=== PATIENT | male | born 1995 | race Caucasian/White ===

== ENCOUNTER 2021-05-10 11:21 | Inpatient (IN) | payer OTHER, SELFPAY ==
[2021-05-10 11:33] VITALS: BP 137/68; PULSE 87; RESP 18; TEMP 36.7; O2SAT 93; BMI 20.2
[2021-05-10 12:50] VITALS: BP 136/85; PULSE 88; RESP 18; O2SAT 100
--- NOTE | 2021-05-10 12:56 | PC.NURSE ---
patient reports he comes here for detox reports using recentyl crystal meth, patient does not appear restless or overstimulated. patient reports recently attending [facility] and leaving early. eddie patricia lives with mother, contracts for safety. pt reports past dx of BPD, SAD, low bmi. reports hearing voices not command, and has difficulty concentrating which is worse with drug use. vaccinated for covid, had covid 10/08.
--- NOTE | 2021-05-10 13:00 | ED.MEDCLEAR ---
HPI - Medical Clearance General Chief complaint: Medical Clearance Stated complaint: BH -med clearance Time Seen by Provider: 05/10/21 12:33 Source: patient Mode of arrival: ambulatory Limitations: no limitations History of Present Illness HPI Narrative: 25 yo male here seeking detox for meth. Injects daily. No additional substance use. Was at [facility] in [place] until 4 days ago when he decided to leave. No SI/Hi. Feels dehydrated d/t poor po intake. It appears family has additional concerns and patient was referred to ED for care team evaluation. Pt Denies SI/HI/hallucinations/depression and anxiety. He does tell me he has difficulty concentrating. Related Information Home Medications Medication Instructions Recorded Confirmed clonidine HCl 0.1 mg PO Q6H PRN 05/10/21 05/10/21 hydroxyzine pamoate 50 mg PO Q6H PRN 05/10/21 05/10/21 quetiapine 200 mg PO DAILY 05/10/21 05/10/21 venlafaxine 37.5 mg PO BID 05/10/21 05/10/21 Allergies Allergy/AdvReac Type Severity Reaction Status Date / Time No Known Allergies Allergy Verified 05/10/21 12:33 Review of Systems Review of Systems: Yes all other systems are reviewed and are negative Constitutional: Constitutional: Reports no additional constitutional complaints, Denies body ache(s), Denies chills, Denies fever(s), Denies headache(s) and Denies weakness Eyes: Eyes: Reports no additional eye complaints and Denies change in vision ENT: Reports system reviewed and no additional complaints, except as documented, Denies dizziness, Denies headache(s), Denies nasal congestion, Denies nasal discharge and Denies neck pain Cardiovascular: Cardiovascular: Reports no additional cardiovascular complaints, Denies chest pain, Denies leg edema and Denies dyspnea Respiratory: Respiratory: Reports no additional respiratory complaints, Denies cough and Denies dyspnea Gastrointestinal: Gastrointestinal: Reports no additional gastrointestinal complaints, Denies abdominal pain, Denies diarrhea, Denies nausea and Denies vomiting Genitourinary: Genitourinary: Denies urinary incontinence Musculoskeletal: Musculoskeletal: Reports no additional musculoskeletal complaints, Denies back pain, Denies arthralgias, Denies joint swelling, Denies neck pain, Denies numbness and Denies tingling Integumentary/Breasts: Skin/Breast: Reports system reviewed and no additional complaints, except as docu and Denies rash Neurologic: Reports system reviewed and no additional complaints, except as documented, Denies Abnormal speech present, Denies dizziness, Denies headache(s), Denies numbness, Denies tingling and Denies weakness Psychiatric: Psychiatric: Denies anxiety, Denies depression, Reports difficulty concentrating, Denies visual hallucinations, Denies hallucinations, Denies homicidal ideation and Denies suicidal ideation PMF Past Medical History Medical History Polycystic kidney disease Social History Social History Alcohol intake: former Patient Tobacco Use Status: Current everyday Tobacco user Smoked in Last 30 Days: Yes Use of substances other than those prescribed or required for medical reasons: Yes Substance Use Type: Amphetamines Substance Use Frequency: Recent Binge Last Used Substance: Hours (ago) Any prior treatment program specific to substance use: Yes Advance Directives: No Advance Directives Information Provided: No Healthcare Proxy: No Guardian: No Physical Exam Vital Signs: Vital Signs: Last Vital Signs Temp 98.1 F 05/10/21 11:33 Pulse 88 05/10/21 15:47 Resp 18 05/10/21 12:50 BP 136/85 05/10/21 15:47 Pulse Ox 100 05/10/21 12:50 Body Mass Index 20.2 Const: General: cooperative, healthy appearing, comfortable and no acute distress Orientation/consciousness: patient oriented x3 Limitations: no limitations HENMT: Head: Yes normal to inspection Ears: hearing grossly normal bilaterally General nose exam: Normal external nose present Face and sinus: Yes normal facial exam Mouth: Normal oral and palatal mucosa present Throat: Yes posterior oropharynx normal Eyes: General: appearance normal, both eyes and all related structures Pupils: Equal, round and reactive pupils present Neck: Neck: Yes normal visual inspection Chest: Chest palpation & inspection: normal inspection of the chest Resp: Effort & Inspection: normal respiratory effort Auscultation: clear to auscultation bilaterally Cardio: Rate: regular rate Rhythm: regular rhythm Peripheral pulses: Peripheral pulses 2+ throughout GI: Inspection: Yes normal to inspection Palpation (GI): Soft to palpation and nontender Auscultation: normal bowel sounds Back/Spine/Pelvis: Thoracic/Lumbar Spine: thoracic and lumbar spine normal to inspection Skin: General skin exam: no rashes or lesions noted Neuro: General: patient oriented x3, no focal motor deficits and normal sensation to monofilament Cranial nerves: Yes Equal, round and reactive pupils present Cognition (Neuro): normal cognition Speech: No Abnormal speech present Gait exam (Neuro): Normal gait present Motor exam (neuro): 5/5 motor strength present throughout Extrem: General: Yes normal to inspection Course Course Course Narrative: 25 yo male here seeking detox for meth, c/o of feeling dehydrated with difficulty concentrating. NO SI. Appears family has additional concerns so will involve care team to obtain collateral information. Will check labs, CESAR, COVID screen. 1645-per care team plan for admission d/t meth use, paranoia, hallucinations and delusions. Patient to be voluntary admit. MDM - Medical Clearance Medical Records Attestation: I reviewed the patient's medical records. Lab Data Attestation: I reviewed the patient's lab results. Result diagrams: 05/10/21 13:02 05/10/21 13:02 Labs: Lab Results 05/10/21 05/10/21 05/10/21 Range/Units 13:02 13:02 13:02 WBC 8.2 (4.8-10.8) X10*3/uL RBC 4.43 L (4.60-5.80) X10*6/uL Hgb 13.9 L (14.0-18.0) g/dl Hct 40.2 L (42-52) % MCV 90.7 (80-98) fL MCH 31.4 (27.0-33.0) pg MCHC 34.6 (31.0-36.0) g/dl RDW 12.7 (11.0-16.0) % Plt Count 197 (160-400) X10*3/uL MPV 9.2 L (9.4-12.4) fL Immature Gran % (Auto) 0.4 (0.0-0.4) % Neut % (Auto) 65.2 (45-73) % Lymph % (Auto) 24.9 (20-40) % [place] % (Auto) 8.2 (2-11) % Eos % (Auto) 1.1 (0-4) % Baso % (Auto) 0.2 (0-2) % Lymph # (Auto) 2.1 (1.2-4.9) X10*3/uL [place]manuel # (Auto) 0.7 (0.1-1.2) X10*3/uL Eos # (Auto) 0.1 (0.0-0.4) X10*3/uL Baso # (Auto) 0.0 (0.0-0.2) X10*3/uL Abs Immat Gran (auto) 0.03 (0.00-0.03) X10*3/uL Absolute Neuts (auto) 5.4 (2.0-8.3) X10*3/uL Absolute Nucleated RBC 0.000 (0.0-0.012) X10*3/uL Nucleated RBC % (auto) 0.0 (0.0-0.2) /100WBC Sodium 142 (135-145) mmol/L Potassium 3.8 (3.3-5.1) mmol/L Chloride 106 (96-108) mmol/L Carbon Dioxide 29 (22-29) mmol/L Anion Gap 11 L (12-20) BUN 12 (9-16) mg/dL Creatinine 0.74 (0.5-1.4) mg/dL Estim Creat Clear Calc 140.7 Estimated GFR > 60 Random Glucose 93 (60-115) mg/dL Calcium 9.4 (8.4-10.2) mg/dL Total Bilirubin 0.4 (0.0-1.0) mg/dL Direct Bilirubin 0.2 (0.0-0.5) mg/dL AST 19 (5-37) U/L ALT 27 (0-40) U/L Alkaline Phosphatase 57 (39-117) U/L Total Protein 6.8 (6.5-8.0) g/dL Albumin 4.5 (3.5-5.0) g/dL Urine Opiates Screen (Not Detect) Ur Barbiturates Screen (Not Detect) Ur Phencyclidine Scrn (Not Detect) Ur Amphetamines Screen (Not Detect) U Benzodiazepines Scrn (Not Detect) Urine Cocaine Screen (Not Detect) U Marijuana (THC) Screen (Not Detect) Ethyl Alcohol mg/dL COVID-19 (BATOOL) Negative (Negative) COVID-19 Clin Com See Note 05/10/21 05/10/21 Range/Units 13:02 13:33 WBC (4.8-10.8) X10*3/uL RBC (4.60-5.80) X10*6/uL Hgb (14.0-18.0) g/dl Hct (42-52) % MCV (80-98) fL MCH (27.0-33.0) pg MCHC (31.0-36.0) g/dl RDW (11.0-16.0) % Plt Count (160-400) X10*3/uL MPV (9.4-12.4) fL Immature Gran % (Auto) (0.0-0.4) % Neut % (Auto) (45-73) % Lymph % (Auto) (20-40) % Emanuel % (Auto) (2-11) % Eos % (Auto) (0-4) % Baso % (Auto) (0-2) % Lymph # (Auto) (1.2-4.9) X10*3/uL Emanuel # (Auto) (0.1-1.2) X10*3/uL Eos # (Auto) (0.0-0.4) X10*3/uL Baso # (Auto) (0.0-0.2) X10*3/uL Abs Immat Gran (auto) (0.00-0.03) X10*3/uL Absolute Neuts (auto) (2.0-8.3) X10*3/uL Absolute Nucleated RBC (0.0-0.012) X10*3/uL Nucleated RBC % (auto) (0.0-0.2) /100WBC Sodium (135-145) mmol/L Potassium (3.3-5.1) mmol/L Chloride (96-108) mmol/L Carbon Dioxide (22-29) mmol/L Anion Gap (12-20) BUN (9-16) mg/dL Creatinine (0.5-1.4) mg/dL Estim Creat Clear Calc Estimated GFR Random Glucose (60-115) mg/dL Calcium (8.4-10.2) mg/dL Total Bilirubin (0.0-1.0) mg/dL Direct Bilirubin (0.0-0.5) mg/dL AST (5-37) U/L ALT (0-40) U/L Alkaline Phosphatase (39-117) U/L Total Protein (6.5-8.0) g/dL Albumin (3.5-5.0) g/dL Urine Opiates Screen Not Detected (Not Detect) Ur Barbiturates Screen Not Detected (Not Detect) Ur Phencyclidine Scrn Not Detected (Not Detect) Ur Amphetamines Screen POSITIVE H (Not Detect) U Benzodiazepines Scrn Not Detected (Not Detect) Urine Cocaine Screen Not Detected (Not Detect) U Marijuana (THC) Screen POSITIVE H (Not Detect) Ethyl Alcohol < 10 mg/dL COVID-19 (BATOOL) (Negative) COVID-19 Clin Com Discharge Plan Discharge Clinical Impression: Depression Patient Disposition: Admitted As Inpatient Prescriptions: No Action venlafaxine 37.5 mg capsule,extended release 24hr 37.5 mg PO BID RF: 0 clonidine HCl 0.1 mg tablet 0.1 mg PO Q6H PRN (Reason: Anxiety) RF: 0 quetiapine 200 mg tablet 200 mg PO DAILY RF: 0 hydroxyzine pamoate 50 mg capsule 50 mg PO Q6H PRN (Reason: Anxiety) RF: 0
[2021-05-10 13:12] LABS: MANUAL DIFF FLAG NO
[2021-05-10 13:16] LABS: Basophils Percent Auto 0.2 % (0-2); Eosinophils Absolute Auto 0.1 X10*3/uL (0.0-0.4); Eosinophils Percent Auto 1.1 % (0-4); Hematocrit 40.2 % (42-52); Hemoglobin 13.9 g/dl (14.0-18.0); Imm Gran Abs Auto 0.03 X10*3/uL (0.00-0.03); Imm Gran Pct Auto 0.4 % (0.0-0.4); Lymphocytes Absolute Auto 2.1 X10*3/uL (1.2-4.9); Lymphocytes Percent Auto 24.9 % (20-40); Mean Corpuscular HGB Conc 34.6 g/dl (31.0-36.0); Mean Corpuscular Hemoglobin 31.4 pg (27.0-33.0); Mean Corpuscular Volume 90.7 fL (80-98); Mean Platelet Volume 9.2 fL (9.4-12.4); Monocytes Absolute Auto 0.7 X10*3/uL (0.1-1.2); Monocytes Percent Auto 8.2 % (2-11); Neutrophils Absolute Auto 5.4 X10*3/uL (2.0-8.3); Neutrophils Percent Auto 65.2 % (45-73); Platelet Count 197 X10*3/uL (160-400); Red Blood Count 4.43 X10*6/uL (4.60-5.80); Red Cell Distribution Width 12.7 % (11.0-16.0); White Blood Count 8.2 X10*3/uL (4.8-10.8)
[2021-05-10] MEDS: Nicotine Polacrilex 2 MG GUM BUCCAL ×2 (13:27→20:42)
[2021-05-10 13:29] LABS: COVID-19 Test Negative (Negative)
[2021-05-10 13:37] LABS: Ethanol < 10 mg/dL
[2021-05-10 13:42] LABS: Alanine Aminotransferase 27 U/L (0-40); Albumin Level 4.5 g/dL (3.5-5.0); Alkaline Phosphatase 57 U/L (39-117); Anion Gap 11 (12-20); Aspartate Amino Transferase 19 U/L (5-37); Bilirubin Direct 0.2 mg/dL (0.0-0.5); Bilirubin Total 0.4 mg/dL (0.0-1.0); Blood Urea Nitrogen 12 mg/dL (9-16); Calcium 9.4 mg/dL (8.4-10.2); Carbon Dioxide 29 mmol/L (22-29); Chloride 106 mmol/L (96-108); Creatinine Clr Calc Pharmacy 140.7; Estimated Glomerular Filt Rate > 60; Glucose Random 93 mg/dL (60-115); Potassium 3.8 mmol/L (3.3-5.1); Sodium 142 mmol/L (135-145); Total Protein 6.8 g/dL (6.5-8.0)
[2021-05-10 14:07] LABS: Amphetamine Screen Urine POSITIVE (Not Detect); Barbiturates, Urine Not Detected (Not Detect); Benzodiazepines Screen Urine Not Detected (Not Detect); Cannabinoid Screen Urine POSITIVE (Not Detect); Cocaine Screen Urine Not Detected (Not Detect); Opiate Screen Urine Not Detected (Not Detect); Phencyclidine Screen Urine Not Detected (Not Detect)
--- NOTE | 2021-05-10 15:03 | PHA.MEDREC ---
Pharmacy Consult ? Medication Reconciliation Pharmacy has completed the medication reconciliation.
[2021-05-10 15:47] VITALS: BP 136/85; PULSE 88
[2021-05-10] MEDS: cloNIDine HCL 0.1 MG TABLET PO (15:47)
[2021-05-10] MEDS: hydrOXYzine HCL 50 MG TABLET PO (16:05)
--- NOTE | 2021-05-10 16:40 | ECG_ITS ---
Test Reason : MED CLEARANCE Blood Pressure : / mmHG Vent. Rate : 076 BPM Atrial Rate : 076 BPM P-R Int : 170 ms QRS Dur : 092 ms QT Int : 382 ms P-R-T Axes : 076 070 057 degrees QTc Int : 429 ms Sinus rhythm with marked sinus arrhythmia Otherwise normal ECG No previous ECGs available Referred By: Debbie Johnston Electronically Signed By:Kvng Kyle
[2021-05-10 17:11] VITALS: BP 117/73; PULSE 86; RESP 17; TEMP 36.7; O2SAT 99
[2021-05-10 18:35] VITALS: BP 133/77; PULSE 70; TEMP 36.4
--- NOTE | 2021-05-10 19:46 | PC.ADMIT ---
Pt is a 25 year old male who presents to from [facility] ED at approx 1837 on a cv status. Pt is covid- Utox + for MJ and Amphetamines. Pt has a hx of detox admission. Pt reported using crystal meth for the last three months. Pt mentioned that he only hears voices when when he is on substances and now he is trying to determine if the voices are real. Pt has a difficult time concentrating and has limited eye contact. Pt has not been taking his Effexor for a month, but willing to restart his medications. Pt has been diagnosed with unspecified depressive disorder, Stimulant use disorder, amphetamine type, Cannabis use disorder moderate. Provider Laura called for orders and notified of admission. Pt appears to be in withdraw. Pt denied SI/HI/VH. Start treatment plan and monitor safety checks.
[2021-05-10 20:00] VITALS: BP 130/77; PULSE 75
[2021-05-10] MEDS: Venlafaxine HCl ER 37.5 MG CAP.ER.24H PO (20:36)
[2021-05-10] MEDS: QUEtiapine Fumarate 100 MG TABLET PO (20:40)
[2021-05-11 06:00] VITALS: BP 116/69; PULSE 97; RESP 18; TEMP 36.5; O2SAT 100
[2021-05-11] MEDS: Nicotine Polacrilex 2 MG GUM BUCCAL ×4 (06:48→21:02)
[2021-05-11] MEDS: Venlafaxine HCl ER 37.5 MG CAP.ER.24H PO ×2 (08:10→20:57)
[2021-05-11 09:06] LABS: Cholesterol 125 mg/dL; HDL Cholesterol 35 mg/dL; LDL Cholesterol Calculated 86 mg/dl; Triglycerides 23 mg/dL
[2021-05-11 09:14] LABS: Estimated Average Glucose 97 mg/dL
[2021-05-11 09:27] LABS: Thyroid Stimulating Hormone 0.67 uIU/mL (0.32-4.0)
[2021-05-11 09:48] LABS: Folate 16.8 ng/mL (> or = 4.0); Vitamin B12 181 pg/mL (200-900)
[2021-05-11] MEDS: QUEtiapine Fumarate 50 MG TABLET PO (13:39)
--- NOTE | 2021-05-11 16:13 | P.HPPS_ITS ---
Documented by User: Malgorzata Carreondylan 05/12/21 09:11 HPI Chief Complaint: Depression with psychosis, substance abuse Sources of Information: patient interviewed, chart reviewed and crisis/core team assessment reviewed HPI Subjective Notes: Conditional Voluntary Narrative: Mr. Mathews is a 25 year-old male with hx of polysubstance use, mostly c rystal meth who self presented to [facility] ED after he left residential program where he was for 12 days on 05/07 on crystal meth. Pt endorsed depression mood, paranoia, AH, poor sleep/appetite, feeling hopeless/helpless related to ongoing substance use. In the ED, his utox was positive for amphetamines. On the unit, pt presents as calm. He reports he has had substance use disorder since he was 15 years old. He reports using in the past heroin and oxy but reports he stopped using opioid in 2015. He reports he has been using daily crystal meth for the past 3 years. He reports having at the most one or two week sobriety in the past 3 years. He reports about a year ago he started to feel paranoid when using crystal meth but also during brief periods of not using it. He reports hearing voices, thinking others are talking about him. He reports strained relationship with family, especially with two brothers but mother more involved in his life. He is currently homeless for past year. He reports poor intake and poor sleep due to crystal meth use. On the unit, he denies suicidal ideation. He denies history of suicide attempts. Past Psychiatric History: Inpatient: two [facility] admission in [place] at age 15 and 17 for depression OP: none currently Suicide attempts: none Past trials: seroquel (helpful), effexor (has not tried for too long but notes that when using worsening of psychosis), gabapentin, depakote, prozac, propanolol Medical Evaluation Reviewed: Yes Low B12- <200- PLAN to start Cyanocobalamin 1000mcg IM qweekly x 4 weeks, then monthly [facility] Medical History Polycystic kidney disease Diagnostics Vital Signs (24Hr): Vital Signs - 24 hr 05/10/21 17:11 05/10/21 18:35 05/10/21 20:00 Temperature 98.1 F 97.6 F Pulse Rate 86 70 75 Respiratory Rate 17 Blood Pressure 117/73 133/77 130/77 Pulse Oximetry 99 05/11/21 06:00 Temperature 97.7 F Pulse Rate 97 Respiratory Rate 18 Blood Pressure 116/69 Pulse Oximetry 100 Body Mass Index 20.2 Labs Results: 05/10/21 13:02 05/10/21 13:02 Labs: Laboratory Results - last 48 hr 05/10/21 05/10/21 05/10/21 13:02 13:02 13:02 WBC 8.2 RBC 4.43 L Hgb 13.9 L Hct 40.2 L MCV 90.7 MCH 31.4 MCHC 34.6 RDW 12.7 Plt Count 197 MPV 9.2 L Immature Gran % (Auto) 0.4 Neut % (Auto) 65.2 Lymph % (Auto) 24.9 [place] % (Auto) 8.2 Eos % (Auto) 1.1 Baso % (Auto) 0.2 Lymph # (Auto) 2.1 [place] # (Auto) 0.7 Eos # (Auto) 0.1 Baso # (Auto) 0.0 Abs Immat Gran (auto) 0.03 Absolute Neuts (auto) 5.4 Absolute Nucleated RBC 0.000 Nucleated RBC % (auto) 0.0 Sodium 142 Potassium 3.8 Chloride 106 Carbon Dioxide 29 Anion Gap 11 L BUN 12 Creatinine 0.74 Estim Creat Clear Calc 140.7 Estimated GFR > 60 Random Glucose 93 Estimat Average Glucose Hemoglobin A1c % Calcium 9.4 Total Bilirubin 0.4 Direct Bilirubin 0.2 AST 19 ALT 27 Alkaline Phosphatase 57 Total Protein 6.8 Albumin 4.5 Triglycerides Cholesterol LDL Cholesterol, Calc HDL Cholesterol Vitamin B12 Folate TSH Free T4 Urine Opiates Screen Ur Barbiturates Screen Ur Phencyclidine Scrn Ur Amphetamines Screen U Benzodiazepines Scrn Urine Cocaine Screen U Marijuana (THC) Screen Ethyl Alcohol COVID-19 (BATOOL) Negative COVID-19 Clin Com See Note 05/10/21 05/10/21 05/11/21 13:02 13:33 07:46 WBC RBC Hgb Hct MCV MCH MCHC RDW Plt Count MPV Immature Gran % (Auto) Neut % (Auto) Lymph % (Auto) [place] % (Auto) Eos % (Auto) Baso % (Auto) Lymph # (Auto) [place] # (Auto) Eos # (Auto) Baso # (Auto) Abs Immat Gran (auto) Absolute Neuts (auto) Absolute Nucleated RBC Nucleated RBC % (auto) Sodium Potassium Chloride Carbon Dioxide Anion Gap BUN Creatinine Estim Creat Clear Calc Estimated GFR Random Glucose Estimat Average Glucose 97 Hemoglobin A1c % 5.0 Calcium Total Bilirubin Direct Bilirubin AST ALT Alkaline Phosphatase Total Protein Albumin Triglycerides Cholesterol LDL Cholesterol, Calc HDL Cholesterol Vitamin B12 Folate TSH Free T4 Urine Opiates Screen Not Detected Ur Barbiturates Screen Not Detected Ur Phencyclidine Scrn Not Detected Ur Amphetamines Screen POSITIVE H U Benzodiazepines Scrn Not Detected Urine Cocaine Screen Not Detected U Marijuana (THC) Screen POSITIVE H Ethyl Alcohol < 10 COVID-19 (BATOOL) COVID-19 Taskforce 05/11/21 05/11/21 07:46 07:46 WBC RBC Hgb Hct MCV MCH MCHC RDW Plt Count MPV Immature Gran % (Auto) Neut % (Auto) Lymph % (Auto) [place] % (Auto) Eos % (Auto) Baso % (Auto) Lymph # (Auto) [place] # (Auto) Eos # (Auto) Baso # (Auto) Abs Immat Gran (auto) Absolute Neuts (auto) Absolute Nucleated RBC Nucleated RBC % (auto) Sodium Potassium Chloride Carbon Dioxide Anion Gap BUN Creatinine Estim Creat Clear Calc Estimated GFR Random Glucose Estimat Average Glucose Hemoglobin A1c % Calcium Total Bilirubin Direct Bilirubin AST ALT Alkaline Phosphatase Total Protein Albumin Triglycerides 23 Cholesterol 125 LDL Cholesterol, Calc 86 HDL Cholesterol 35 Vitamin B12 181 L Folate 16.8 TSH 0.67 Free T4 1.10 Urine Opiates Screen Ur Barbiturates Screen Ur Phencyclidine Scrn Ur Amphetamines Screen U Benzodiazepines Scrn Urine Cocaine Screen U Marijuana (THC) Screen Ethyl Alcohol COVID-19 (BATOOL) COVID-19 Taskforce Meds/Allergies Meds Home Medications Acetaminophen (Acetaminophen 325 Mg Tablet) 650 mg PO Q6H PRN PRN Reason: Headache/Pain Mild Scale (1-3) Last Admin: 05/11/21 21:00 Dose: 650 mg Documented by: Al Hydroxide/Mg Hydroxide (Magnesium Hydrox/Alum Hydrox 30 Ml Oral.Susp) 30 ml PO Q6H PRN PRN Reason: Heartburn/Nausea Baclofen (Baclofen 10 Mg Tablet) 5 mg PO TID AIDA Last Admin: 05/12/21 08:13 Dose: 5 mg Documented by: Clonidine HCl (Clonidine Hcl 0.1 Mg Tablet) 0.1 mg PO DAILY AIDA; Protocol Last Admin: 05/12/21 08:13 Dose: 0.1 mg Documented by: Cyanocobalamin (Cyanocobalamin (Vitamin B-12) 1,000 Mcg/Ml Vial) 1,000 mcg IM We@0900 [facility] Stop: 06/01/21 09:01 Last Admin: 05/11/21 18:30 Dose: 1,000 mcg Documented by: Magnesium Hydroxide (Milk Of Magnesia 30 Ml Oral.Susp) 30 ml PO DAILY PRN PRN Reason: Constipation Nicotine Polacrilex (Nicotine Polacrilex 2 Mg Gum) 2 mg BUCCAL QID PRN PRN Reason: nicotine cravings Last Admin: 05/12/21 09:07 Dose: 2 mg Documented by: Quetiapine Fumarate (Quetiapine Fumarate 200 Mg Tablet) 200 mg PO BEDTIME [facility] Last Admin: 05/11/21 20:57 Dose: 200 mg Documented by: Quetiapine Fumarate (Quetiapine Fumarate 50 Mg Tablet) 50 mg PO Q6H PRN PRN Reason: agitation/anxiety Trazodone HCl (Trazodone Hcl 50 Mg Tablet) 50 mg PO BEDTIME PRN PRN Reason: Insomnia Venlafaxine HCl (Venlafaxine Hcl Er 37.5 Mg Cap.Er.24h) 37.5 mg PO BID [facility] Last Admin: 05/12/21 08:13 Dose: 37.5 mg Documented by: Allergies Allergies Allergy/AdvReac Type Severity Reaction Status Date / Time No Known Allergies Allergy Verified 05/10/21 12:33 Mental Status Exam Mental Status Exam Narrative: Appearance: casually groomed, fair hygiene, in NAD Behavior: calm, cooperative Psychomotor: no agitation or retardation noted Speech: clear, normal rate/rhythm/volume, spontaneous TP: linear TC: reference to some paranoia but some awareness that this may not be the case, hopeless related to ongoing substance use Mood: anxious Affect: congruent SI:denies HI:denies AH/VH:AH Delusions:paranoia with some insight Insight/judgment:fair x2 Memory/cog: alert, oriented x 3. Pt reports some problems remembering things. Assessment & Plan Assessment & Plan (1) Amphetamine and amphetamine derivative dependence: Status: Acute Code(s): F15.20 - Other stimulant dependence, uncomplicated Assessment and Plan: 1. Aftercare planning. Pt interested in residential substance use treatment. 2. PRN for anxiety, muscle aches (2) Stimulant-induced psychotic disorder with delusions: Status: Acute Code(s): F15.950 - Other stimulant use, unspecified with stimulant-induced psychotic disorder with delusions Assessment and Plan: 1. Increase Seroquel 200mg po qhs. PRN seroquel 50mg po q6hrs prn agitation. 2. Clonidine 0.1mg po daily. (3) MDD (major depressive disorder), recurrent episode, moderate: Status: Acute Code(s): F33.1 - Major depressive disorder, recurrent, moderate Assessment and Plan: 1. Continue Effexor 37.5mg po daily- however, will monitor closely increase in psychosis Reason for continued inpatient stay Substantial Risk for: harm to self Documented by User: Ken Canales MD 05/12/21 11:24 HPI Chief Complaint: Depression with psychosis, substance abuse [facility] Medical History Polycystic kidney disease Diagnostics Labs Results: 05/10/21 13:02 05/10/21 13:02 Meds/Allergies Meds Home Medications Acetaminophen (Acetaminophen 325 Mg Tablet) 650 mg PO Q6H PRN PRN Reason: Headache/Pain Mild Scale (1-3) Last Admin: 05/11/21 21:00 Dose: 650 mg Documented by: Al Hydroxide/Mg Hydroxide (Magnesium Hydrox/Alum Hydrox 30 Ml Oral.Susp) 30 ml PO Q6H PRN PRN Reason: Heartburn/Nausea Baclofen (Baclofen 10 Mg Tablet) 5 mg PO TID AIDA Last Admin: 05/12/21 08:13 Dose: 5 mg Documented by: Clonidine HCl (Clonidine Hcl 0.1 Mg Tablet) 0.1 mg PO DAILY AIDA; Protocol Last Admin: 05/12/21 08:13 Dose: 0.1 mg Documented by: Cyanocobalamin (Cyanocobalamin (Vitamin B-12) 1,000 Mcg/Ml Vial) 1,000 mcg IM We@00 [facility] Stop: 06/01/21 09:01 Last Admin: 05/11/21 18:30 Dose: 1,000 mcg Documented by: Magnesium Hydroxide (Milk Of Magnesia 30 Ml Oral.Susp) 30 ml PO DAILY PRN PRN Reason: Constipation Nicotine Polacrilex (Nicotine Polacrilex 2 Mg Gum) 2 mg BUCCAL QID PRN PRN Reason: nicotine cravings Last Admin: 05/12/21 09:07 Dose: 2 mg Documented by: Quetiapine Fumarate (Quetiapine Fumarate 200 Mg Tablet) 200 mg PO BEDTIME [facility] Last Admin: 05/11/21 20:57 Dose: 200 mg Documented by: Quetiapine Fumarate (Quetiapine Fumarate 50 Mg Tablet) 50 mg PO Q6H PRN PRN Reason: agitation/anxiety Trazodone HCl (Trazodone Hcl 50 Mg Tablet) 50 mg PO BEDTIME PRN PRN Reason: Insomnia Venlafaxine HCl (Venlafaxine Hcl Er 37.5 Mg Cap.Er.24h) 37.5 mg PO BID [facility] Last Admin: 05/12/21 08:13 Dose: 37.5 mg Documented by: Allergies Allergies Allergy/AdvReac Type Severity Reaction Status Date / Time No Known Allergies Allergy Verified 05/10/21 12:33
[2021-05-11 18:00] VITALS: BP 101/64; PULSE 60; TEMP 36.8
[2021-05-11] MEDS: Cyanocobalamin (Vitamin B-12) 1,000 MCG/ML VIAL 1000 MCG IM (18:30)
[2021-05-11] MEDS: QUEtiapine Fumarate 200 MG TABLET PO (20:57)
[2021-05-11] MEDS: Baclofen 10 MG TABLET 5 MG PO (20:57)
[2021-05-11] MEDS: Acetaminophen 325 MG TABLET 650 MG PO (21:00)
[2021-05-12 06:00] VITALS: BP 104/54; PULSE 66; RESP 20; TEMP 36.4; O2SAT 98
[2021-05-12 08:13] VITALS: BP 107/62; PULSE 68
[2021-05-12] MEDS: Venlafaxine HCl ER 37.5 MG CAP.ER.24H PO (08:13)
[2021-05-12] MEDS: cloNIDine HCL 0.1 MG TABLET PO (08:13)
[2021-05-12] MEDS: Baclofen 10 MG TABLET 5 MG PO ×3 (08:13→22:18)
[2021-05-12] MEDS: Nicotine Polacrilex 2 MG GUM BUCCAL ×2 (09:07→12:44)
[2021-05-12 09:57] VITALS: BMI 21.6
[2021-05-12] MEDS: Acetaminophen 325 MG TABLET 650 MG PO (14:10)
[2021-05-12 18:00] VITALS: BP 141/77; PULSE 80; TEMP 36.6
[2021-05-12] MEDS: QUEtiapine Fumarate 200 MG TABLET PO (22:18)
[2021-05-13 06:00] VITALS: BP 121/62; PULSE 62; RESP 16; TEMP 36.2; O2SAT 95
[2021-05-13 08:35] VITALS: BP 122/59; PULSE 65; RESP 18; TEMP 36.6; O2SAT 99
[2021-05-13] MEDS: Baclofen 10 MG TABLET 5 MG PO ×3 (08:51→22:07)
[2021-05-13 08:52] VITALS: BP 122/59; PULSE 65
[2021-05-13] MEDS: cloNIDine HCL 0.1 MG TABLET PO (08:52)
[2021-05-13] MEDS: Venlafaxine HCl ER 75 MG CAP.ER.24H PO (08:52)
--- NOTE | 2021-05-13 13:55 | P.PNPSI_ITS ---
Subjective Subjective Date of Service: 05/13/21 Reason For Visit: Depression with psychosis, substance abuse Subjective Notes: Conditional Voluntary Interim History: Issa reports feeling less anxious. He reports less AH, some residual paranoia. He reports feeling hopeless, helpless, depressed in that he notes that it has been difficult to continue on recovery. He denies SI/HI. He continues to report interest to continue residential substance use treatment. Per nursing, pt has been more visible. Medication Compliance: Yes Review of Systems Review of Systems Yes all other systems are reviewed and are negative Constitutional: Reports no additional constitutional complaints, Denies body ache(s), Denies chills, Denies fever(s), Denies headache(s) and Denies weakness Eyes: Reports no additional eye complaints and Denies change in vision Reports system reviewed and no additional complaints, except as documented, Denies dizziness, Denies headache(s), Denies nasal congestion, Denies nasal discharge and Denies neck pain Cardiovascular: Reports no additional cardiovascular complaints, Denies chest pain, Denies leg edema and Denies dyspnea Respiratory: Reports no additional respiratory complaints, Denies cough and Denies dyspnea Gastrointestinal: Reports no additional gastrointestinal complaints, Denies abdominal pain, Denies constipation, Denies GI cramping, Denies dyspepsia, Denies heartburn, Denies diarrhea, Denies nausea and Denies vomiting Genitourinary: Denies urinary incontinence Musculoskeletal: Reports no additional musculoskeletal complaints, Denies back pain, Reports myalgias, Denies arthralgias, Denies joint swelling, Denies neck pain, Denies numbness and Denies tingling Skin/Breast: Reports system reviewed and no additional complaints, except as docu and Denies rash Reports system reviewed and no additional complaints, except as documented, Denies Abnormal speech present, Denies dizziness, Denies headache(s), Denies numbness, Denies tingling and Denies weakness Psychiatric: Denies anxiety, Denies depression, Reports difficulty concentrating, Denies visual hallucinations, Denies hallucinations, Denies h omicidal ideation and Denies suicidal ideation Mental Status Exam Mental Status Exam Narrative: Appearance: casually groomed, fair hygiene, in NAD Behavior: calm, cooperative Psychomotor: no agitation or retardation noted Speech: clear, normal rate/rhythm/volume, spontaneous TP: linear TC: reference to some paranoia but some awareness that this may not be the case, hopeless related to ongoing substance use Mood: anxious Affect: congruent SI:denies HI:denies AH/VH:AH Delusions:paranoia with some insight Insight/judgment:fair x2 Memory/cog: alert, oriented x 3. Pt reports some problems remembering things. Diagnostics Vital Signs (24Hr): Vital Signs - 24 hr 05/12/21 18:00 05/13/21 06:00 05/13/21 08:35 Temperature 98 F 97.1 F 97.9 F Pulse Rate 80 62 65 Respiratory Rate 16 18 Blood Pressure 141/77 H 121/62 122/59 L Pulse Oximetry 95 99 05/13/21 08:52 Temperature Pulse Rate 65 Respiratory Rate Blood Pressure 122/59 L Pulse Oximetry Body Mass Index 21.6 Labs Results: 05/10/21 13:02 05/10/21 13:02 Medications Medications Current Medications Generic Name Dose Route Start Last Admin Trade Name Freq PRN Reason Stop Dose Admin Acetaminophen 650 mg 05/10/21 19:04 05/12/21 14:10 Acetaminophen 325 Mg Tablet PO 650 mg Q6H PRN Administration Headache/Pain Mild Scale (1-3) Al Hydroxide/Mg Hydroxide 30 ml 05/10/21 19:04 Magnesium Hydrox/Alum Hydrox 30 Ml Oral.Susp PO Q6H PRN Heartburn/Nausea Baclofen 5 mg 05/11/21 21:00 05/13/21 08:51 Baclofen 10 Mg Tablet PO 5 mg TID AIDA Administration Clonidine HCl 0.1 mg 05/12/21 09:00 05/13/21 08:52 Clonidine Hcl 0.1 Mg Tablet PO 0.1 mg DAILY AIDA Administration Protocol Cyanocobalamin 1,000 mcg 05/11/21 18:00 05/11/21 18:30 Cyanocobalamin (Vitamin B-12) 1,000 Mcg/Ml Vial IM 06/01/21 09:01 1,000 mcg We@0900 AIDA Administration Magnesium Hydroxide 30 ml 05/10/21 19:04 Milk Of Magnesia 30 Ml Oral.Susp PO DAILY PRN Constipation Nicotine Polacrilex 4 mg 05/12/21 13:38 05/13/21 12:05 Nicotine Polacrilex 4 Mg Lozenge BUCCAL 4 mg Q2H PRN Administration Nicotine Cravings Quetiapine Fumarate 200 mg 05/11/21 21:00 05/12/21 22:18 Quetiapine Fumarate 200 Mg Tablet PO 200 mg BEDTIME AIDA Administration Quetiapine Fumarate 50 mg 05/11/21 16:07 Quetiapine Fumarate 50 Mg Tablet PO Q6H PRN agitation/anxiety Trazodone HCl 50 mg 05/10/21 19:04 Trazodone Hcl 50 Mg Tablet PO BEDTIME PRN Insomnia Venlafaxine HCl 75 mg 05/13/21 09:00 05/13/21 08:52 Venlafaxine Hcl Er 75 Mg Cap.Er.24h PO 75 mg DAILY AIDA Administration Allergies Allergies Allergy/AdvReac Type Severity Reaction Status Date / Time No Known Allergies Allergy Verified 05/10/21 12:33 Assessment & Plan Assessment & Plan (1) Amphetamine and amphetamine derivative dependence: Status: Acute Code(s): F15.20 - Other stimulant dependence, uncomplicated Assessment and Plan: 1. Aftercare planning. Pt interested in residential substance use treatment. 2. PRN for anxiety, muscle aches (2) Stimulant-induced psychotic disorder with delusions: Status: Acute Code(s): F15.950 - Other stimulant use, unspecified with stimulant-induced psychotic disorder with delusions Assessment and Plan: 1. Increase Seroquel 200mg po qhs. PRN seroquel 50mg po q6hrs prn agitation. 2. Clonidine 0.1mg po daily. (3) MDD (major depressive disorder), recurrent episode, moderate: Status: Acute Code(s): F33.1 - Major depressive disorder, recurrent, moderate Assessment and Plan: 1. Continue Effexor 75mg po daily- however, will monitor closely increase in psychosis Greater than 50% of the session was spent on counseling and/or coordination of care Reason for contiued inpatient stay Substantial Risk for: harm to self
[2021-05-13 18:00] VITALS: BP 133/87; PULSE 67; TEMP 36.9
[2021-05-13] MEDS: Milk of Magnesia 30 ML ORAL.SUSP PO (20:10)
[2021-05-13] MEDS: QUEtiapine Fumarate 200 MG TABLET PO (22:07)
[2021-05-14 06:00] VITALS: BP 128/64; PULSE 62; RESP 14; TEMP 36.6; O2SAT 98
[2021-05-14 08:40] VITALS: BP 121/58; PULSE 62; RESP 18; TEMP 36.3; O2SAT 98
[2021-05-14 08:54] VITALS: BP 121/58; PULSE 62
[2021-05-14] MEDS: Baclofen 10 MG TABLET 5 MG PO ×3 (08:54→22:30)
[2021-05-14] MEDS: cloNIDine HCL 0.1 MG TABLET PO (08:54)
[2021-05-14] MEDS: Venlafaxine HCl ER 75 MG CAP.ER.24H PO (08:54)
--- NOTE | 2021-05-14 11:27 | HO.PSYCHPN ---
Subjective Subjective Date of Service: 05/15/21 Reason For Visit: Depression with psychosis, substance abuse Interim History: Issa reports decreased depression although continues to worry about his future most of the day in room. He was encouraged to attend groups. He reports less AH, less paranoid towards peers. He reports some cravings of crystal meth but able to cope with them. He reports feeling physically tired. He denies SI/HI. He is taking medications as prescribed. No behavioral concerns. Review of Systems Review of Systems Yes all other systems are reviewed and are negative Constitutional: Reports no additional constitutional complaints, Denies body ache(s), Denies chills, Denies fever(s), Denies headache(s) and Denies weakness Eyes: Reports no additional eye complaints and Denies change in vision Reports system reviewed and no additional complaints, except as documented, Denies dizziness, Denies headache(s), Denies nasal congestion, Denies nasal discharge and Denies neck pain Cardiovascular: Reports no additional cardiovascular complaints, Denies chest pain, Denies leg edema and Denies dyspnea Respiratory: Reports no additional respiratory complaints, Denies cough and Denies dyspnea Gastrointestinal: Reports no additional gastrointestinal complaints, Denies abdominal pain, Denies constipation, Denies GI cramping, Denies dyspepsia, Denies heartburn, Denies diarrhea, Denies nausea and Denies vomiting Genitourinary: Denies urinary incontinence Musculoskeletal: Reports no additional musculoskeletal complaints, Denies back pain, Reports myalgias, Denies arthralgias, Denies joint swelling, Denies neck pain, Denies numbness and Denies tingling Skin/Breast: Reports system reviewed and no additional complaints, except as docu and Denies rash Reports system reviewed and no additional complaints, except as documented, Denies Abnormal speech present, Denies dizziness, Denies headache(s), Denies numbness, Denies tingling and Denies weakness Psychiatric: Denies anxiety, Denies depression, Reports difficulty concentrating, Denies visual hallucinations, Denies hallucinations, Denies homicidal ideation and Denies suicidal ideation Mental Status Exam Mental Status Exam Narrative: Appearance: casually groomed, fair hygiene, in NAD Behavior: calm, cooperative Psychomotor: no agitation or retardation noted Speech: clear, normal rate/rhythm/volume, spontaneous TP: linear TC: reference to some paranoia but some awareness that this may not be the case, hopeless related to ongoing substance use Mood: anxious Affect: congruent SI:denies HI:denies AH/VH:AH Delusions:paranoia with some insight Insight/judgment:fair x2 Memory/cog: alert, oriented x 3. Pt reports some problems remembering things. Diagnostics Vital Signs (24Hr): Vital Signs - 24 hr 05/14/21 19:00 05/15/21 06:00 05/15/21 08:11 Temperature 98.2 F 97.9 F Pulse Rate 73 61 63 Blood Pressure 129/74 107/54 L 123/65 Body Mass Index 21.6 Labs Results: 05/10/21 13:02 05/10/21 13:02 Medications Medications Current Medications Generic Name Dose Route Start Last Admin Trade Name Freq PRN Reason Stop Dose Admin Acetaminophen 650 mg 05/10/21 19:04 05/12/21 14:10 Acetaminophen 325 Mg Tablet PO 650 mg Q6H PRN Administration Headache/Pain Mild Scale (1-3) Al Hydroxide/Mg Hydroxide 30 ml 05/10/21 19:04 Magnesium Hydrox/Alum Hydrox 30 Ml Oral.Susp PO Q6H PRN Heartburn/Nausea Baclofen 5 mg 05/11/21 21:00 05/15/21 08:11 Baclofen 10 Mg Tablet PO 5 mg TID AIDA Administration Clonidine HCl 0.1 mg 05/12/21 09:00 05/15/21 08:11 Clonidine Hcl 0.1 Mg Tablet PO 0.1 mg DAILY AIDA Administration Protocol Cyanocobalamin 1,000 mcg 05/11/21 18:00 05/11/21 18:30 Cyanocobalamin (Vitamin B-12) 1,000 Mcg/Ml Vial IM 06/01/21 09:01 1,000 mcg We@0900 AIDA Administration Magnesium Hydroxide 30 ml 05/10/21 19:04 05/13/21 20:10 Milk Of Magnesia 30 Ml Oral.Susp PO 30 ml DAILY PRN Administration Constipation Nicotine Polacrilex 4 mg 05/12/21 13:38 05/15/21 08:11 Nicotine Polacrilex 4 Mg Lozenge BUCCAL 4 mg Q2H PRN Administration Nicotine Cravings Quetiapine Fumarate 200 mg 05/11/21 21:00 05/14/21 22:30 Quetiapine Fumarate 200 Mg Tablet PO 200 mg BEDTIME AIDA Administration Quetiapine Fumarate 50 mg 05/11/21 16:07 Quetiapine Fumarate 50 Mg Tablet PO Q6H PRN agitation/anxiety Trazodone HCl 50 mg 05/10/21 19:04 Trazodone Hcl 50 Mg Tablet PO BEDTIME PRN Insomnia Venlafaxine HCl 75 mg 05/13/21 09:00 05/15/21 08:11 Venlafaxine Hcl Er 75 Mg Cap.Er.24h PO 75 mg DAILY AIDA Administration Allergies Allergies Allergy/AdvReac Type Severity Reaction Status Date / Time No Known Allergies Allergy Verified 05/10/21 12:33 Assessment & Plan Assessment & Plan (1) Amphetamine and amphetamine derivative dependence: Status: Acute Code(s): F15.20 - Other stimulant dependence, uncomplicated Assessment and Plan: 1. Aftercare planning. Pt interested in residential substance use treatment. 2. PRN for anxiety, muscle aches (2) Stimulant-induced psychotic disorder with delusions: Status: Acute Code(s): F15.950 - Other stimulant use, unspecified with stimulant-induced psychotic disorder with delusions Assessment and Plan: 1. Increase Seroquel 200mg po qhs. PRN seroquel 50mg po q6hrs prn agitation. 2. Clonidine 0.1mg po daily. (3) MDD (major depressive disorder), recurrent episode, moderate: Status: Acute Code(s): F33.1 - Major depressive disorder, recurrent, moderate Assessment and Plan: 1. Continue Effexor 75mg po daily- however, will monitor closely increase in psychosis Greater than 50% of the session was spent on counseling and/or coordination of care Reason for contiued inpatient stay Substantial Risk for: harm to self
[2021-05-14 19:00] VITALS: BP 129/74; PULSE 73; TEMP 36.8
[2021-05-14] MEDS: QUEtiapine Fumarate 200 MG TABLET PO (22:30)
[2021-05-15 06:00] VITALS: BP 107/54; PULSE 61; TEMP 36.6
[2021-05-15 08:11] VITALS: BP 123/65; PULSE 63
[2021-05-15] MEDS: Venlafaxine HCl ER 75 MG CAP.ER.24H PO (08:11)
[2021-05-15] MEDS: Baclofen 10 MG TABLET 5 MG PO ×3 (08:11→21:41)
[2021-05-15] MEDS: cloNIDine HCL 0.1 MG TABLET PO (08:11)
[2021-05-15] MEDS: QUEtiapine Fumarate 200 MG TABLET PO (21:41)
[2021-05-15 21:43] VITALS: BP 128/72; PULSE 73
[2021-05-16 06:15] VITALS: BP 97/50; PULSE 61; RESP 16; TEMP 36.2; O2SAT 97
[2021-05-16] MEDS: Venlafaxine HCl ER 75 MG CAP.ER.24H PO (08:02)
[2021-05-16] MEDS: Baclofen 10 MG TABLET 5 MG PO ×3 (08:02→22:42)
[2021-05-16 08:03] VITALS: BP 90/60; PULSE 68
[2021-05-16] MEDS: cloNIDine HCL 0.1 MG TABLET PO (08:03)
[2021-05-16] MEDS: Milk of Magnesia 30 ML ORAL.SUSP PO (13:26)
--- NOTE | 2021-05-16 14:29 | P.PNPSI_ITS ---
Subjective Subjective Date of Service: 05/16/21 Reason For Visit: Depression with psychosis, substance abuse Interim History: Issa continues to reports depression, worry about his future most of the day in room again, mostly in bed, having difficulty engaging in any meaningful activity during the day. He was encouraged to attend groups. He reports less AH, less paranoid towards peers. He reports some cravings of crystal meth but able to cope with them. He reports feeling physically tired. He denies SI/HI. He is taking medications as prescribed. No behavioral concerns. we discussed increasing Venlafaxine, which he agreed. Review of Systems Review of Systems Yes all other systems are reviewed and are negative Constitutional: Reports no additional constitutional complaints, Denies body ache(s), Denies chills, Denies fever(s), Denies headache(s) and Denies weakness Eyes: Reports no additional eye complaints and Denies change in vision Reports system reviewed and no additional complaints, except as documented, Den ies dizziness, Denies headache(s), Denies nasal congestion, Denies nasal discharge and Denies neck pain Cardiovascular: Reports no additional cardiovascular complaints, Denies chest pain, Denies leg edema and Denies dyspnea Respiratory: Reports no additional respiratory complaints, Denies cough and Denies dyspnea Gastrointestinal: Reports no additional gastrointestinal complaints, Denies abdominal pain, Denies constipation, Denies GI cramping, Denies dyspepsia, Denies heartburn, Denies diarrhea, Denies nausea and Denies vomiting Genitourinary: Denies urinary incontinence Musculoskeletal: Reports no additional musculoskeletal complaints, Denies back pain, Reports myalgias, Denies arthralgias, Denies joint swelling, Denies neck pain, Denies numbness and Denies tingling Skin/Breast: Reports system reviewed and no additional complaints, except as docu and Denies rash Reports system reviewed and no additional complaints, except as documented, Denies Abnormal speech present, Denies dizziness, Denies headache(s), Denies numbness, Denies tingling and Denies weakness Psychiatric: Denies anxiety, Denies depression, Reports difficulty concentrating, Denies visual hallucinations, Denies hallucinations, Denies homicidal ideation and Denies suicidal ideation Mental Status Exam Mental Status Exam Narrative: Appearance: casually groomed, fair hygiene, in NAD Behavior: calm, cooperative Psychomotor: no agitation or retardation noted Speech: clear, normal rate/rhythm/volume, spontaneous TP: linear TC: reference to some paranoia but some awareness that this may not be the case, hopeless related to ongoing substance use Mood: anxious Affect: congruent SI:denies HI:denies AH/VH:AH Delusions:paranoia with some insight Insight/judgment:fair x2 Memory/cog: alert, oriented x 3. Pt reports some problems remembering things. Diagnostics Vital Signs (24Hr): Vital Signs - 24 hr 05/15/21 21:43 05/16/21 06:15 05/16/21 08:03 Temperature 97.1 F Pulse Rate 73 61 68 Respiratory Rate 16 Blood Pressure 128/72 97/50 L 90/60 Pulse Oximetry 97 Body Mass Index 21.6 Labs Results: 05/10/21 13:02 05/10/21 13:02 Medications Medications Current Medications Generic Name Dose Route Start Last Admin Trade Name Freq PRN Reason Stop Dose Admin Acetaminophen 650 mg 05/10/21 19:04 05/12/21 14:10 Acetaminophen 325 Mg Tablet PO 650 mg Q6H PRN Administration Headache/Pain Mild Scale (1-3) Al Hydroxide/Mg Hydroxide 30 ml 05/10/21 19:04 Magnesium Hydrox/Alum Hydrox 30 Ml Oral.Susp PO Q6H PRN Heartburn/Nausea Baclofen 5 mg 05/11/21 21:00 05/16/21 08:02 Baclofen 10 Mg Tablet PO 5 mg TID AIDA Administration Clonidine HCl 0.1 mg 05/12/21 09:00 05/16/21 08:03 Clonidine Hcl 0.1 Mg Tablet PO 0.1 mg DAILY AIDA Administration Protocol Cyanocobalamin 1,000 mcg 05/11/21 18:00 05/11/21 18:30 Cyanocobalamin (Vitamin B-12) 1,000 Mcg/Ml Vial IM 06/01/21 09:01 1,000 mcg We@0900 AIDA Administration Magnesium Hydroxide 30 ml 05/10/21 19:04 05/16/21 13:26 Milk Of Magnesia 30 Ml Oral.Susp PO 30 ml DAILY PRN Administration Constipation Nicotine Polacrilex 4 mg 05/12/21 13:38 05/16/21 12:55 Nicotine Polacrilex 4 Mg Lozenge BUCCAL 4 mg Q2H PRN Administration Nicotine Cravings Quetiapine Fumarate 200 mg 05/11/21 21:00 05/15/21 21:41 Quetiapine Fumarate 200 Mg Tablet PO 200 mg BEDTIME AIDA Administration Quetiapine Fumarate 50 mg 05/11/21 16:07 Quetiapine Fumarate 50 Mg Tablet PO Q6H PRN agitation/anxiety Trazodone HCl 50 mg 05/10/21 19:04 Trazodone Hcl 50 Mg Tablet PO BEDTIME PRN Insomnia Venlafaxine HCl 75 mg 05/13/21 09:00 05/16/21 08:02 Venlafaxine Hcl Er 75 Mg Cap.Er.24h PO 75 mg DAILY AIDA Administration Allergies Allergies Allergy/AdvReac Type Severity Reaction Status Date / Time No Known Allergies Allergy Verified 05/10/21 12:33 Assessment & Plan Assessment & Plan (1) Amphetamine and amphetamine derivative dependence: Status: Acute Code(s): F15.20 - Other stimulant dependence, uncomplicated Assessment and Plan: 1. Aftercare planning. Pt interested in residential substance use treatment. 2. PRN for anxiety, muscle aches (2) Stimulant-induced psychotic disorder with delusions: Status: Acute Code(s): F15.950 - Other stimulant use, unspecified with stimulant-induced psychotic disorder with delusions Assessment and Plan: 1. Increase Seroquel 200mg po qhs. PRN seroquel 50mg po q6hrs prn agitation. 2. Clonidine 0.1mg po daily. (3) MDD (major depressive disorder), recurrent episode, moderate: Status: Acute Code(s): F33.1 - Major depressive disorder, recurrent, moderate Assessment and Plan: 1. Increase Effexor 112.5mg po daily- on 05/16-however, will monitor closely increase in psychosis Greater than 50% of the session was spent on counseling and/or coordination of care Reason for contiued inpatient stay Substantial Risk for: harm to self
[2021-05-16 16:10] VITALS: BP 110/61; PULSE 71; TEMP 21.6
[2021-05-16] MEDS: QUEtiapine Fumarate 200 MG TABLET PO (22:42)
[2021-05-17 06:00] VITALS: BP 108/67; PULSE 61; RESP 16; TEMP 36.4; O2SAT 98
[2021-05-17] MEDS: Venlafaxine HCl ER 37.5 MG CAP.ER.24H PO (08:40)
[2021-05-17] MEDS: Baclofen 10 MG TABLET 5 MG PO ×3 (08:40→22:40)
[2021-05-17 08:41] VITALS: BP 126/68; PULSE 72
[2021-05-17] MEDS: Venlafaxine HCl ER 75 MG CAP.ER.24H PO (08:41)
[2021-05-17] MEDS: cloNIDine HCL 0.1 MG TABLET PO (08:41)
--- NOTE | 2021-05-17 16:04 | HO.PSYCHPN ---
Subjective Subjective Date of Service: 05/17/21 Reason For Visit: Depression with psychosis, substance abuse Interim History: Issa continues to report depression, anhedonia, although today he was slightly more visible in the unit. He was encouraged to attend groups. He reports less AH, less paranoid towards peers. He reports some cravings of crystal meth but able to cope with them. He reports feeling physically tired. He denies SI/HI. He is taking medications as prescribed. No behavioral concerns. we discussed increasing Venlafaxine, which he agreed. Review of Systems Review of Systems Yes all other systems are reviewed and are negative Constitutional: Reports no additional constitutional complaints, Denies body ache(s), Denies chills, Denies fever(s), Denies headache(s) and Denies weakness Eyes: Reports no additional eye complaints and Denies change in vision Reports system reviewed and no additional complaints, except as documented, Denies dizziness, Denies headache(s), Denies nasal congestion, Denies nasal discharge and Denies neck pain Cardiovascular: Reports no additional cardiovascular complaints, Denies chest pain, Denies leg edema and Denies dyspnea Respiratory: Reports no additional respiratory complaints, Denies cough and Denies dyspnea Gastrointestinal: Reports no additional gastrointestinal complaints, Denies abdominal pain, Denies constipation, Denies GI cramping, Denies dyspepsia, Denies heartburn, Denies diarrhea, Denies nausea and Denies vomiting Genitourinary: Denies urinary incontinence Musculoskeletal: Reports no additional musculoskeletal complaints, Denies back pain, Reports myalgias, Denies arthralgias, Denies joint swelling, Denies neck pain, Denies numbness and Denies tingling Skin/Breast: Reports system reviewed and no additional complaints, except as docu and Denies rash Reports system reviewed and no additional complaints, except as documented, Denies Abnormal speech present, Denies dizziness, Denies headache(s), Denies numbness, Denies tingling and Denies weakness Psychiatric: Denies anxiety, Denies depression, Reports difficulty concentrating, Denies visual hallucinations, Denies hallucinations, Denies homicidal ideation and Denies suicidal ideation Mental Status Exam Mental Status Exam Narrative: Appearance: casually groomed, fair hygiene, in NAD Behavior: calm, cooperative Psychomotor: no agitation or retardation noted Speech: clear, normal rate/rhythm/volume, spontaneous TP: linear TC: reference to some paranoia but some awareness that this may not be the case, hopeless related to ongoing substance use Mood: anxious Affect: congruent SI:denies HI:denies AH/VH:AH Delusions:paranoia with some insight Insight/judgment:fair x2 Memory/cog: alert, oriented x 3. Pt reports some problems remembering things. Diagnostics Vital Signs (24Hr): Vital Signs - 24 hr 05/16/21 16:10 05/17/21 06:00 05/17/21 08:41 Temperature 71 F L 97.6 F Pulse Rate 71 61 72 Respiratory Rate 16 Blood Pressure 110/61 108/67 126/68 Pulse Oximetry 98 Body Mass Index 21.6 Labs Results: 05/10/21 13:02 05/10/21 13:02 Medications Medications Current Medications Generic Name Dose Route Start Last Admin Trade Name Freq PRN Reason Stop Dose Admin Acetaminophen 650 mg 05/10/21 19:04 05/12/21 14:10 Acetaminophen 325 Mg Tablet PO 650 mg Q6H PRN Administration Headache/Pain Mild Scale (1-3) Al Hydroxide/Mg Hydroxide 30 ml 05/10/21 19:04 Magnesium Hydrox/Alum Hydrox 30 Ml Oral.Susp PO Q6H PRN Heartburn/Nausea Baclofen 5 mg 05/11/21 21:00 05/17/21 14:44 Baclofen 10 Mg Tablet PO 5 mg TID AIDA Administration Clonidine HCl 0.1 mg 05/12/21 09:00 05/17/21 08:41 Clonidine Hcl 0.1 Mg Tablet PO 0.1 mg DAILY AIDA Administration Protocol Cyanocobalamin 1,000 mcg 05/11/21 18:00 05/11/21 18:30 Cyanocobalamin (Vitamin B-12) 1,000 Mcg/Ml Vial IM 06/01/21 09:01 1,000 mcg We@0900 AIDA Administration Magnesium Hydroxide 30 ml 05/10/21 19:04 05/16/21 13:26 Milk Of Magnesia 30 Ml Oral.Susp PO 30 ml DAILY PRN Administration Constipation Nicotine Polacrilex 4 mg 05/12/21 13:38 05/17/21 14:44 Nicotine Polacrilex 4 Mg Lozenge BUCCAL 4 mg Q2H PRN Administration Nicotine Cravings Quetiapine Fumarate 200 mg 05/11/21 21:00 05/16/21 22:42 Quetiapine Fumarate 200 Mg Tablet PO 200 mg BEDTIME AIDA Administration Quetiapine Fumarate 50 mg 05/11/21 16:07 Quetiapine Fumarate 50 Mg Tablet PO Q6H PRN agitation/anxiety Trazodone HCl 50 mg 05/10/21 19:04 Trazodone Hcl 50 Mg Tablet PO BEDTIME PRN Insomnia Venlafaxine HCl 75 mg 05/17/21 09:00 05/17/21 08:41 Venlafaxine Hcl Er 75 Mg Cap.Er.24h PO 75 mg DAILY AIDA Administration Venlafaxine HCl 37.5 mg 05/17/21 09:00 05/17/21 08:40 Venlafaxine Hcl Er 37.5 Mg Cap.Er.24h PO 37.5 mg DAILY AIDA Administration Allergies Allergies Allergy/AdvReac Type Severity Reaction Status Date / Time No Known Allergies Allergy Verified 05/10/21 12:33 Assessment & Plan Assessment & Plan (1) Amphetamine and amphetamine derivative dependence: Status: Acute Code(s): F15.20 - Other stimulant dependence, uncomplicated Assessment and Plan: 1. Aftercare planning. Pt interested in residential substance use treatment. 2. PRN for anxiety, muscle aches (2) Stimulant-induced psychotic disorder with delusions: Status: Acute Code(s): F15.950 - Other stimulant use, unspecified with stimulant-induced psychotic disorder with delusions Assessment and Plan: 1. Increase Seroquel 200mg po qhs. PRN seroquel 50mg po q6hrs prn agitation. 2. Clonidine 0.1mg po daily. (3) MDD (major depressive disorder), recurrent episode, moderate: Status: Acute Code(s): F33.1 - Major depressive disorder, recurrent, moderate Assessment and Plan: 1. Increase Effexor 112.5mg po daily- on 05/16-however, will monitor closely increase in psychosis Greater than 50% of the session was spent on counseling and/or coordination of care Reason for contiued inpatient stay Substantial Risk for: rapid decompensation
[2021-05-17 18:00] VITALS: BP 122/59; PULSE 65; TEMP 37.1
[2021-05-17] MEDS: Acetaminophen 325 MG TABLET 650 MG PO (22:40)
[2021-05-17] MEDS: QUEtiapine Fumarate 200 MG TABLET PO (22:41)
[2021-05-18] MEDS: Venlafaxine HCl ER 37.5 MG CAP.ER.24H PO (09:21)
[2021-05-18] MEDS: Venlafaxine HCl ER 75 MG CAP.ER.24H PO (09:21)
[2021-05-18] MEDS: Baclofen 10 MG TABLET 5 MG PO ×3 (09:21→22:32)
[2021-05-18 09:22] VITALS: BP 130/73; PULSE 99
[2021-05-18] MEDS: cloNIDine HCL 0.1 MG TABLET PO (09:22)
[2021-05-18] MEDS: Cyanocobalamin (Vitamin B-12) 1,000 MCG/ML VIAL 1000 MCG IM (09:38)
--- NOTE | 2021-05-18 17:05 | HO.PSYCHPN ---
Subjective Subjective Date of Service: 05/19/21 Reason For Visit: Depression with psychosis, substance abuse Interim History: Issa has been more visible in the unit and social with select peers. He reports slightly elss depressed mood, but states he feels bored. He denies SI/HI. He denies VH/AH. He reports less paranoia towards peers or staff. He does report some cravings of crystal meth. He does not want to wait for program to continue and reports that he would like to be discharged tomorrow to [facility]. He reports he will follow up with [facility] program for further substance use treatment. Review of Systems Review of Systems Yes all other systems are reviewed and are negative Constitutional: Reports no additional constitutional complaints, Denies body ache(s), Denies chills, Denies fever(s), Denies headache(s) and Denies weakness Eyes: Reports no additional eye complaints and Denies change in vision Reports system reviewed and no additional complaints, except as documented, Denies dizziness, Denies headache(s), Denies nasal congestion, Denies nasal discharge and Denies neck pain Cardiovascular: Reports no additional cardiovascular complaints, Denies chest pain, Denies leg edema and Denies dyspnea Respiratory: Reports no additional respiratory complaints, Denies cough and Denies dyspnea Gastrointestinal: Reports no additional gastrointestinal complaints, Denies abdominal pain, Denies constipation, Denies GI cramping, Denies dyspepsia, Denies heartburn, Denies diarrhea, Denies nausea and Denies vomiting Genitourinary: Denies urinary incontinence Musculoskeletal: Reports no additional musculoskeletal complaints, Denies back pain, Reports myalgias, Denies arthralgias, Denies joint swelling, Denies neck pain, Denies numbness and Denies tingling Skin/Breast: Reports system reviewed and no additional complaints, except as docu and Denies rash Reports system reviewed and no additional complaints, except as documented, Denies Abnormal speech present, Denies dizziness, Denies headache(s), Denies numbness, Denies tingling and Denies weakness Psychiatric: Denies anxiety, Denies depression, Reports difficulty concentrating, Denies visual hallucinations, Denies hallucinations, Denies homicidal ideation and Denies suicidal ideation Mental Status Exam Mental Status Exam Narrative: Appearance: casually groomed, fair hygiene, in NAD Behavior: calm, cooperative Psychomotor: no agitation or retardation noted Speech: clear, normal rate/rhythm/volume, spontaneous TP: linear TC: reference to some paranoia but some awareness that this may not be the case, hopeless related to ongoing substance use Mood: anxious Affect: congruent SI:denies HI:denies AH/VH:AH Delusions:paranoia with some insight Insight/judgment:fair x2 Memory/cog: alert, oriented x 3. Pt reports some problems remembering things. Diagnostics Vital Signs (24Hr): Vital Signs - 24 hr 05/17/21 18:00 05/18/21 09:22 Temperature 98.8 F Pulse Rate 65 99 Blood Pressure 122/59 L 130/73 Body Mass Index 21.6 Labs Results: 05/10/21 13:02 05/10/21 13:02 Medications Medications Current Medications Generic Name Dose Route Start Last Admin Trade Name Freq PRN Reason Stop Dose Admin Acetaminophen 650 mg 05/10/21 19:04 05/17/21 22:40 Acetaminophen 325 Mg Tablet PO 650 mg Q6H PRN Administration Headache/Pain Mild Scale (1-3) Al Hydroxide/Mg Hydroxide 30 ml 05/10/21 19:04 Magnesium Hydrox/Alum Hydrox 30 Ml Oral.Susp PO Q6H PRN Heartburn/Nausea Baclofen 5 mg 05/11/21 21:00 05/18/21 14:51 Baclofen 10 Mg Tablet PO 5 mg TID AIDA Administration Clonidine HCl 0.1 mg 05/12/21 09:00 05/18/21 09:22 Clonidine Hcl 0.1 Mg Tablet PO 0.1 mg DAILY AIDA Administration Protocol Cyanocobalamin 1,000 mcg 05/11/21 18:00 05/18/21 09:38 Cyanocobalamin (Vitamin B-12) 1,000 Mcg/Ml Vial IM 06/01/21 09:01 1,000 mcg We@0900 AIDA Administration Magnesium Hydroxide 30 ml 05/10/21 19:04 05/16/21 13:26 Milk Of Magnesia 30 Ml Oral.Susp PO 30 ml DAILY PRN Administration Constipation Nicotine Polacrilex 4 mg 05/12/21 13:38 05/18/21 13:38 Nicotine Polacrilex 4 Mg Lozenge BUCCAL 4 mg Q2H PRN Administration Nicotine Cravings Quetiapine Fumarate 200 mg 05/11/21 21:00 05/17/21 22:41 Quetiapine Fumarate 200 Mg Tablet PO 200 mg BEDTIME AIDA Administration Quetiapine Fumarate 50 mg 05/11/21 16:07 Quetiapine Fumarate 50 Mg Tablet PO Q6H PRN agitation/anxiety Trazodone HCl 50 mg 05/10/21 19:04 Trazodone Hcl 50 Mg Tablet PO BEDTIME PRN Insomnia Venlafaxine HCl 75 mg 05/17/21 09:00 05/18/21 09:21 Venlafaxine Hcl Er 75 Mg Cap.Er.24h PO 75 mg DAILY AIDA Administration Venlafaxine HCl 37.5 mg 05/17/21 09:00 05/18/21 09:21 Venlafaxine Hcl Er 37.5 Mg Cap.Er.24h PO 37.5 mg DAILY AIDA Administration Allergies Allergies Allergy/AdvReac Type Severity Reaction Status Date / Time No Known Allergies Allergy Verified 05/10/21 12:33 Assessment & Plan Assessment & Plan (1) Amphetamine and amphetamine derivative dependence: Status: Acute Code(s): F15.20 - Other stimulant dependence, uncomplicated Assessment and Plan: 1. Aftercare planning. Pt interested in residential substance use treatment. 2. PRN for anxiety, muscle aches (2) Stimulant-induced psychotic disorder with delusions: Status: Acute Code(s): F15.950 - Other stimulant use, unspecified with stimulant-induced psychotic disorder with delusions Assessment and Plan: 1. Increase Seroquel 200mg po qhs. PRN seroquel 50mg po q6hrs prn agitation. 2. Clonidine 0.1mg po daily. (3) MDD (major depressive disorder), recurrent episode, moderate: Status: Acute Code(s): F33.1 - Major depressive disorder, recurrent, moderate Assessment and Plan: 1. Increase Effexor 112.5mg po daily- on 05/16-however, will monitor closely increase in psychosis Greater than 50% of the session was spent on counseling and/or coordination of care Reason for contiued inpatient stay Substantial Risk for: stable for discharge
[2021-05-18 20:35] VITALS: BP 128/78; PULSE 86; TEMP 36.6
[2021-05-18] MEDS: QUEtiapine Fumarate 200 MG TABLET PO (22:34)
[2021-05-19 06:00] VITALS: BP 116/58; PULSE 62; RESP 16; TEMP 36.6; O2SAT 97
[2021-05-19 07:00] VITALS: BMI 22.3
[2021-05-19 08:46] VITALS: BP 122/73; PULSE 74; RESP 16
[2021-05-19] MEDS: Venlafaxine HCl ER 75 MG CAP.ER.24H PO (08:48)
[2021-05-19] MEDS: Venlafaxine HCl ER 37.5 MG CAP.ER.24H PO (08:48)
[2021-05-19] MEDS: cloNIDine HCL 0.1 MG TABLET PO (08:48)
[2021-05-19] MEDS: Baclofen 10 MG TABLET 5 MG PO (08:48)
--- NOTE | 2021-05-19 11:56 | PM.PSYDC ---
DS: Providers Provider Date of Service: 05/19/21 Date of admission: 05/10/21 19:01 Primary care physician: Unknown Physician DS: Diagnosis Discharge Diagnosis (1) Amphetamine and amphetamine derivative dependence: Status: Acute (2) Stimulant-induced psychotic disorder with delusions: Status: Acute (3) MDD (major depressive disorder), recurrent episode, moderate: Status: Acute DS: Medications Discharge Medications Home Medications: Previous Rx's Medication Instructions Recorded baclofen 5 mg PO TID #90 tab 05/19/21 clonidine HCl 0.1 mg PO DAILY #30 tab 05/19/21 cyanocobalamin (vitamin B-12) 1,000 mcg PO DAILY #30 cap 05/19/21 nicotine (polacrilex) 4 mg BUCCAL Q2H PRN #90 ea 05/19/21 quetiapine 200 mg PO BEDTIME #30 tab 05/19/21 venlafaxine 37.5 mg PO DAILY #30 cap 05/19/21 venlafaxine 75 mg PO DAILY #30 cap 05/19/21 Discharge Plan Discharge Patient Disposition: Home, Self-Care Discharge Diagnosis: MDD recurrent moderate Stimulant induce psychosis and use disorder Referrals: Sharlene Shaw (therapy) [Other] - 05/30/21 1:00 pm (telehealth appointment) Physician,Unknown [Primary Care Provider] - 1 Week Discharge Medications: New venlafaxine 37.5 mg Capsule,Extended Release 24hr 37.5 mg PO DAILY Qty: 30 RF: 0 clonidine HCl 0.1 mg Tablet 0.1 mg PO DAILY Qty: 30 RF: 0 venlafaxine 75 mg Capsule,Extended Release 24hr 75 mg PO DAILY Qty: 30 RF: 0 quetiapine 200 mg Tablet 200 mg PO BEDTIME Qty: 30 RF: 0 baclofen 10 mg Tablet 5 mg PO TID Qty: 90 RF: 0 nicotine (polacrilex) 4 mg Mini Lozenge 4 mg buccal Q2H PRN (Reason: Nicotine Cravings) Qty: 90 RF: 0 cyanocobalamin (vitamin B-12) 1,000 mcg capsule 1,000 mcg PO DAILY Qty: 30 RF: 0 Discontinued venlafaxine 37.5 mg capsule,extended release 24hr 37.5 mg PO BID RF: 0 clonidine HCl 0.1 mg tablet 0.1 mg PO Q6H PRN (Reason: Anxiety) RF: 0 quetiapine 200 mg tablet 200 mg PO DAILY RF: 0 hydroxyzine pamoate 50 mg capsule 50 mg PO Q6H PRN (Reason: Anxiety) RF: 0 Discharge Orders: Discharge Order (Routine); Ordered 05/19/21 Ordered By: Malgorzata Dickson Diet: regular diet Activity on Discharge: As tolerated Stand Alone Forms: Patient Portal Discharge page Care Plan Goals: 1. Maintain mood 2. No SI/HI Health Concerns: Follow up with PCP- low B12 Plan of Treatment: 1. take medications as prescribed 2. Go to nearest ED or call 911 in event of emergency Assessment: No SI/HI. Less depressed mood. no AH/VH. Less paranoia. Discharge Date/Time: 05/19/21 14:10 Mental Status Exam Mental Status Exam Narrative: Appearance: casually groomed, fair hygiene, in NAD Behavior: calm, cooperative Psychomotor: no agitation or retardation noted Speech: clear, normal rate/rhythm/volume, spontaneous TP: linear TC: reference to some paranoia but some awareness that this may not be the case, hopeless related to ongoing substance use Mood: anxious Affect: congruent SI:denies HI:denies AH/VH:AH Delusions:paranoia with some insight Insight/judgment:fair x2 Memory/cog: alert, oriented x 3. Pt reports some problems remembering things. DS: Summary Hospital Course Hospital Course: Mr. Mathews is a 25 year-old male with hx of polysubstance use, mostly crystal meth who self presented to [facility] ED after he left residential program where he was for 12 days on 05/07 on crystal meth. Pt endorsed depression mood, paranoia, AH, poor sleep/appetite, feeling hopeless/helpless related to ongoing substance use. In the ED, his utox was positive for amphetamines. On the unit, pt presents as calm. He reports he has had substance use disorder since he was 15 years old. He reports using in the past heroin and oxy but reports he stopped using opioid in 2015. He reports he has been using daily crystal meth for the past 3 years. He reports having at the most one or two week sobriety in the past 3 years. He reports about a year ago he started to feel paranoid when using crystal meth but also during brief periods of not using it. He reports hearing voices, thinking others are talking about him. He reports strained relationship with family, especially with two brothers but mother more involved in his life. He is currently homeless for past year. He reports poor intake and poor sleep due to crystal meth use. On the unit, he denies suicidal ideation. He denies history of suicide attempts. Past Psychiatric History: Inpatient: two previous admission in [place] at age 15 and 17 for depression OP: none currently Suicide attempts: none Past trials: seroquel (helpful), effexor (has not tried for too long but notes that when using worsening of psychosis), gabapentin, depakote, prozac, propanolol Medical Evaluation Reviewed: Yes Low B12- <200- PLAN to start Cyanocobalamin 1000mcg IM qweekly x 4 weeks, then monthly HOSPITAL COURSE On the unit, Mr. Mathews reported increased depression, anhedonia, paranoia in that he thought someone was after him. He denied SI/HI. But reported feeling hopeless/helpless in terms of overcoming substance use. We discussed risks, benefits and alternative treatment options. He reported seroquel was helpful for anxiety and paranoia which increases with crystal meth use. He was started on effexor as he thought it had been helpful in the past. His affect gradually brighten and he reported no paranoia, no hallucinations. He was sleeping and eating well. He reported motivation to go to residential treatment program but later was hesitant about it. He denied SI/HI throughout the hospital stay. There were no incidences of disruptive behaviors nor use of restraints. Status at Discharge Cognitive/behavioral status at discharge: No SI/HI. Improved sleep. No paranoid. No signs of responding to internal stimuli. Functional status at discharge: independent ambulation Overall status at discharge: patient is not back to baseline Time Spent with Patient Time attestation: Total time spent providing and/or coordinating discharge services: Time spent: Greater than 30 minutes
--- NOTE | 2021-05-19 12:49 | PC.NURSE ---
pt was given information regarding scheduling a PCP appointment.
== END 2021-05-19 14:10 | disposition home or self-care (01) | DRG 751 ==
LOC: HO.ED 16:46 → HO.PM5 19:11
PROVIDERS: Nurse Practitioner Family; Admitting Provider Clinical Nurse Specialist Psychiatric/Mental Health, Adult; Emergency Provider Emergency Medicine Emergency Medical Services; Visit Provider Social Worker
DX: F33.1 Major depressive disorder, recurrent, moderate (principal); F15.950 Other stimulant use, unspecified with stimulant-induced psychotic disorder with delusions; Q61.3 Polycystic kidney, unspecified; Z20.822 Contact with and (suspected) exposure to COVID-19; Z79.899 Other long term (current) drug therapy
CPT/HCPCS: 36415; 80048; 80061; 80076; 80307; 82077; 82607; 82746; 83036; 84439; 84443; 85025; 87635; 93005; 99285

== ENCOUNTER 2021-07-07 07:55 | Emergency (ER) | payer OTHER, SELFPAY ==
[2021-07-07 10:55] VITALS: BP 133/87; PULSE 110; RESP 16; TEMP 37.1; O2SAT 98; BMI 20.9
--- NOTE | 2021-07-07 11:17 | ED_ITS ---
HPI - Alcohol General Chief Complaint: General Medical Stated Complaint: Seeking Detox Time Seen by Provider: 07/07/21 10:21 Source: patient Mode of arrival: ambulatory Limitations: no limitations History of Present Illness HPI narrative: 26-year-old male who is dependent on meth and marijuana who uses daily and last use last night presenting to the ED requesting detox. Reports that he went approximately 1 month ago for same. He denies any additional substances. He denies any ETOH usage. He denies any SI/HI/auditory visualizations thoughts of self-injury. He denies any fevers, chills, dizziness, headaches, changes in vision, nausea/vomiting, neck pain/stiffness, sore throat, cough, chest pain, shortness of breath, dyspnea exertion, orthopnea, palpitations, abdominal pain, back pain, dysuria, hematuria, black or bloody stools, abnormal penile discharge, rashes or any other symptoms complaints or concerns at this time. MD complaint: desires rehab Chronic alcohol use: No Previous visits for alcohol intoxication: No Recent trauma: No Associated symptoms: denies other symptoms Treatments prior to arrival: none Related Data Previous Rx's Medication Instructions Recorded baclofen 10 mg tablet 5 mg PO TID #90 tab 05/19/21 clonidine HCl 0.1 mg tablet 0.1 mg PO DAILY #30 tab 05/19/21 cyanocobalamin (vitamin B-12) 1,000 mcg PO DAILY #30 cap 05/19/21 1,000 mcg capsule nicotine (polacrilex) 4 mg buccal 4 mg BUCCAL Q2H PRN #90 ea 05/19/21 mini lozenge quetiapine 200 mg tablet 200 mg PO BEDTIME #30 tab 05/19/21 venlafaxine 37.5 mg 37.5 mg PO DAILY #30 cap 05/19/21 capsule,extended release 24 hr venlafaxine 75 mg capsule,extended 75 mg PO DAILY #30 cap 05/19/21 release 24 hr Allergies Allergy/AdvReac Type Severity Reaction Status Date / Time No Known Allergies Allergy Verified 05/10/21 12:33 Review of Systems Review of Systems: Constitutional : No Fever, No Chills ENT/Mouth : No Ear Pain, No Nasal Congestion, No sore throat Eyes: No Eye Pain, No Swelling, No Redness Cardiovascular : No Chest Pain, No SOB Respiratory : No Cough, No Sputum, No Dyspnea Gastrointestinal : No ingestions, No Nausea, No Vomiting, No Diarrhea, No Hematochezia, No Melena Genitourinary : No Dysuria, No Urinary Frequency, No Hematuria Musculoskeletal : No Myalgias Skin : No Skin Lesions, No rash Neuro : No Weakness, No Numbness, No Paresthesias, No Dizziness, No Headache Psych : No Anxiety, No Depression, No SI/HI, No AVH, No thoughts of self injury Heme/Lymph: No Lymphadenopathy Endocrine : No Polyuria, No Polydipsia Yes all other systems are reviewed and are negative [facility] Past Medical History Attestation statement: The following information was validated with the patient. Medical History Polycystic kidney disease Social History Social History Household Members: None Housing: Homeless Do you presently have visiting nurse or other home services: No Alcohol intake: current Alcohol intake frequency: does not drink Patient Tobacco Use Status: Current everyday Tobacco user Tobacco use type: Cigarette Cigarette Packs Per Day: 1 Cigarettes Per Day: 20.0 Years Smoked: 11 Second Hand Smoke Exposure: Yes Use of substances other than those prescribed or required for medical reasons: No Substance Use Type: Amphetamines and Marijuana Advance Directives: Yes Advance Directives Information Provided: Yes Advance Directives on File: No service: No Sexual orientation: Don't Know Physical Exam Vital Signs: Vital Signs: Last Vital Signs Temp 98.2 F 07/07/21 16:05 Pulse 66 07/07/21 16:05 Resp 18 07/07/21 16:05 BP 128/73 07/07/21 16:05 Pulse Ox 99 07/07/21 16:05 Body Mass Index 20.9 vital signs have been reviewed as normal and appeared to be correct. Blood pressure normal. Heart rate tachycardic at 110.Respiration rate normal. Temperature normal. Oxygen saturation normal. Appearance: Alert. Oriented X3. No acute distress. Head: Normal external exam. Normocephalic. Atraumatic. Eyes: PERRLA. EOMI. Conjunctiva and sclera normal. Eyelids normal. ENT: Pharynx normal. Uvula midline. Moist mucous membranes. Neck: Normal inspection. Neck supple. FROM. No adenopathy. Thyroid Normal. No meningeal signs. No neck mass noted. CVS: Normal heart rate and rhythm. Heart sound normal. Pulses normal throughout. No murmurs/rales/gallops. Respiratory: No respiratory distress. Painless inspiration. Breath sounds normal. No wheezes/rales/rhonchi noted. Chest nontender. No accessory muscle usage noted or decreased air movement noted. Abdomen: Soft and nontender. Bowel sounds normal in all 4 quadrants. No distention noted. No organomegaly noted. No visible injury noted. Back: Full range of motion noted. No rashes/lesion/induration/fluctuance or s igns of infection noted. Skin: Skin warm and dry. Normal skin color. Normal skin turgor. No rashes/lesions/lacerations noted. Extremities: Extremities exhibit normal range of motion. Extremities n ontender. Neuro: Oriented X 3. No motor deficit. No sensory deficit. Reflexes normal. Normal steady gait. No focal neuro deficits noted. Vascular: + radial pulses/+ 2 distal pedal pulses/+2 dorsalis pedis b/l. Normal cap refill. No cyanosis noted to upper extremity nails and lower extremity toes nails. Course Course Course Narrative: 11am - 25-year-old male here seeking detox for meth and marijuana. Denies any other complaints. No SI/HI/auditory visual sensations thoughts of self-injury. Denies any other symptoms. Therefore at this time will obtain a drugs of abuse screen and a COVID swab and placed the care Team consult for detox and re- evaluate. Reevaluation(s) Reevaluation #1: -patient was positive for amphetamines and marijuana negative for all other drugs. - care team attempted to find placement for patient for detox although no open beds and he extracted the patient to follow up with the kathrine Crowder and patient understands agrees with this plan. Time: 16:06 [facility] - Alcohol Medical Records Attestation: I reviewed the patient's medical records. Lab Data Attestation: I reviewed the patient's lab results. Labs: Lab Results 07/07/21 07/07/21 Range/Units 11:33 11:33 Urine Opiates Screen Not Detected (Not Detect) Urine Fentanyl Screen Not Detected (Not Detect) Ur Barbiturates Screen Not Detected (Not Detect) Ur Phencyclidine Scrn Not Detected (Not Detect) Ur Amphetamines Screen POSITIVE H (Not Detect) U Benzodiazepines Scrn Not Detected (Not Detect) Urine Cocaine Screen Not Detected (Not Detect) U Marijuana (THC) Screen POSITIVE H (Not Detect) COVID-19 (BATOOL) Negative (Negative) COVID-19 Clin Com See Note Discharge Plan Discharge Clinical Impression: Amphetamine and amphetamine derivative dependence, Desire for detoxification Patient Disposition: Home, Self-Care Instructions: Methamphetamine Abuse (ED) Prescriptions: No Action venlafaxine 37.5 mg Capsule,Extended Release 24hr 37.5 mg PO DAILY Qty: 30 RF: 0 clonidine HCl 0.1 mg Tablet 0.1 mg PO DAILY Qty: 30 RF: 0 venlafaxine 75 mg Capsule,Extended Release 24hr 75 mg PO DAILY Qty: 30 RF: 0 quetiapine 200 mg Tablet 200 mg PO BEDTIME Qty: 30 RF: 0 baclofen 10 mg Tablet 5 mg PO TID Qty: 90 RF: 0 nicotine (polacrilex) 4 mg Mini Lozenge 4 mg buccal Q2H PRN (Reason: Nicotine Cravings) Qty: 90 RF: 0 cyanocobalamin (vitamin B-12) 1,000 mcg capsule 1,000 mcg PO DAILY Qty: 30 RF: 0 Referrals: Jasson Garcia DO [Primary Care Provider] - 2 days Print Language: Greek
[2021-07-07 11:55] LABS: COVID-19 Test Negative (Negative); IDNOW Serial# 9DD0AD1C
[2021-07-07 12:06] LABS: Amphetamine Screen Urine POSITIVE (Not Detect); Barbiturates, Urine Not Detected (Not Detect); Benzodiazepines Screen Urine Not Detected (Not Detect); Cannabinoid Screen Urine POSITIVE (Not Detect); Cocaine Screen Urine Not Detected (Not Detect); Fentanyl, urine Not Detected (Not Detect); Opiate Screen Urine Not Detected (Not Detect); Phencyclidine Screen Urine Not Detected (Not Detect)
[2021-07-07] MEDS: Nicotine Polacrilex Lozenge 2 MG LOZENGE BUCCAL (12:50)
--- NOTE | 2021-07-07 12:58 | PC.NURSE ---
patient a&ox3, pt medicated per order with nicotine lozenge, vitals obtained, vss, will continue to monitor.
[2021-07-07 12:59] VITALS: BP 130/70; PULSE 68; RESP 18; TEMP 36.8; O2SAT 99
--- NOTE | 2021-07-07 13:57 | MHC.RECOVSUP ---
? Reason for consult:Continuity of care o Current location: ED[facility] o Identified substance use concern:Crystal Meth - Seeking ATS (detox) - Support ? Intervention: o Community resources provided o Harm reduction discussion ? Plan: o Patient to follow up with [facility] after discharge ? Additional information: Pt. seeking detox
--- NOTE | 2021-07-07 15:43 | PC.NURSE ---
patient continues to wait for detox bed placement, will continue to monitor.
[2021-07-07 16:05] VITALS: BP 128/73; PULSE 66; RESP 18; TEMP 36.8; O2SAT 99
== END 2021-07-07 16:19 | disposition home or self-care (01) ==
PROVIDERS: Physician Assistant Medical; Emergency Provider Internal Medicine; PCP Internal Medicine
DX: F15.20 Other stimulant dependence, uncomplicated (principal); F12.20 Cannabis dependence, uncomplicated; Z20.822 Contact with and (suspected) exposure to COVID-19; F32.9 Major depressive disorder, single episode, unspecified; Z79.899 Other long term (current) drug therapy
CPT/HCPCS: 36415; 80307; 87635; 99284

== ENCOUNTER 2021-11-01 20:57 | Emergency (ER) | payer OTHER, SELFPAY ==
[2021-11-01 21:15] VITALS: BP 133/82; PULSE 105; RESP 18; TEMP 36.6; O2SAT 98; BMI 19.5
--- NOTE | 2021-11-01 21:37 | ECG_ITS ---
Test Reason : MED CLEARANCE Blood Pressure : / mmHG Vent. Rate : 071 BPM Atrial Rate : 071 BPM P-R Int : 176 ms QRS Dur : 102 ms QT Int : 380 ms P-R-T Axes : 064 075 069 degrees QTc Int : 412 ms Normal sinus rhythm Normal ECG When compared with ECG of 10-MAY-2021 17:44, No significant change was found Referred By: Candi Fritz Electronically Signed By:MARY JOHNSTON MD
--- NOTE | 2021-11-01 21:44 | PHA.MEDREC ---
PATIENT HAS NOT BEEN TAKING ANY MEDICATIONS, HE FILLED SOME MEDS IN may 2021 BUT STILL HAS FULL BOTTLES. Pharmacy Consult ? Medication Reconciliation Pharmacy has completed the medication reconciliation.
[2021-11-01 21:48] LABS: Appearance Urine HAZY; Color Urine YELLOW; Glucose Urine UA NEG (NEG); Leukocyte Esterase Urine NEG (NEG); Nitrite Urine NEG (NEG); UACC Culture Trigger NO; Urine Blood TRACE (NEG); Urine Ketones NEG (NEG); Urine Protein 2+ MG/DL (NEG-TRACE)
[2021-11-01 21:55] LABS: Amorphous Sediment Urine 2+ /LPF; Mucus Urine 1+ /LPF; Squamous Epithelial Cell Urine TRACE /LPF
[2021-11-01 21:56] LABS: WBC Urine 0-2 /HPF (0-4)
[2021-11-01 22:00] LABS: COVID-19 Test Positive (Negative); IDNOW Serial# 9DD0AD1C
[2021-11-01 22:08] LABS: Amphetamine Screen Urine POSITIVE (Not Detect); Barbiturates, Urine Not Detected (Not Detect); Benzodiazepines Screen Urine Not Detected (Not Detect); Cannabinoid Screen Urine POSITIVE (Not Detect); Cocaine Screen Urine Not Detected (Not Detect); Fentanyl, urine Not Detected (Not Detect); Opiate Screen Urine POSITIVE (Not Detect); Phencyclidine Screen Urine Not Detected (Not Detect)
[2021-11-01 22:08] LABS: MANUAL DIFF FLAG NO
[2021-11-01 22:10] LABS: Basophils Percent Auto 0.2 % (0-2); Eosinophils Absolute Auto 0.1 X10*3/uL (0.0-0.4); Eosinophils Percent Auto 0.8 % (0-4); Hematocrit 43.1 % (42.0-52.0); Hemoglobin 15.2 g/dl (14.0-18.0); Imm Gran Abs Auto 0.02 X10*3/uL (0.00-0.03); Imm Gran Pct Auto 0.2 % (0.0-0.4); Lymphocytes Absolute Auto 2.6 X10*3/uL (1.2-4.9); Lymphocytes Percent Auto 27.3 % (20-40); Mean Corpuscular HGB Conc 35.3 g/dl (31.0-36.0); Mean Corpuscular Hemoglobin 31.1 pg (27.0-33.0); Mean Corpuscular Volume 88.3 fL (80.0-98.0); Mean Platelet Volume 9.3 fL (9.4-12.4); Monocytes Absolute Auto 0.8 X10*3/uL (0.1-1.2); Monocytes Percent Auto 7.8 % (2-11); Neutrophils Absolute Auto 6.1 x10*3/uL (2.0-8.3); Neutrophils Percent Auto 63.7 % (45-73); Platelet Count 237 X10*3/uL (160-400); Red Blood Count 4.88 X10*6/uL (4.60-5.80); Red Cell Distribution Width 12.1 % (11.0-16.0); White Blood Count 9.6 X10*3/uL (4.8-10.8)
[2021-11-01 22:23] LABS: Ethanol < 10 mg/dL
[2021-11-01 22:26] LABS: Acetaminophen LAB < 1 mcg/mL (<30)
[2021-11-01 22:26] LABS: Anion Gap 12 (12-20); Blood Urea Nitrogen 13 mg/dL (9-16); Calcium 10.2 mg/dL (8.4-10.2); Carbon Dioxide 29 mmol/L (22-29); Chloride 105 mmol/L (96-108); Creatinine Clr Calc Pharmacy 107.1; Estimated Glomerular Filt Rate > 60; Glucose Random 97 mg/dL (60-115); Magnesium 1.9 mg/dL (1.6-2.6); Potassium 3.8 mmol/L (3.3-5.1); Salicylate < 5.0 mg/dL (15-30); Sodium 142 mmol/L (135-145)
[2021-11-01] MEDS: Nicotine Polacrilex 2 MG GUM BUCCAL (22:33)
--- NOTE | 2021-11-02 00:26 | ED_ITS ---
HPI - Psych General Chief Complaint: Psychiatric Symptoms <JOSE Mckeon - Last Filed: 11/02/21 00:58> Stated Complaint: crisis <JOSE Mckeon Last Filed: 11/02/21 00:58> Time Seen by Provider: 11/01/21 21:36 <JOSE Mckeon Last Filed: 11/02/21 00:58> Source: patient <JOSE Mckeon Last Filed: 11/02/21 00:58> Mode of arrival: ambulatory <JOSE Mckeon Last Filed: 11/02/21 00:58> Limitations: no limitations <JOSE Mckeon Last Filed: 11/02/21 00:58> History of Present Illness HPI Narrative: 26-year-old male with a past medical history of anxiety, depression who reports he uses meth daily along with pills, marijuana and codeine he last used prior to arrival presenting to the ED with complaints of increased anxiety / depression with SI thoughts no plan in place with auditory and visual hallucination and delusions for days worse today. Reports he is also not taking his psychiatric medications. He reports that he was in [facility] and was discharged because him and his mother did not realize that they did not provide any psychiatric rehabilitation therefore his mother brought him here for admission for psychiatric rehabilitation. Although had their the social psychologist looked up the hospital that the patient was at and it appears that the patient was at a COVID positive detox center and he did not admit to this when he arrived here and the mother never told Sabrina that he was in a COVID Rehabilitation Center. He denies any plan in place. He denies homicidal ideations. He reports that he can live with his grandfather after his discharge here. Denies any other symptoms complaints or concerns at this time. <JOSE Mckeon Last Filed: 11/02/21 00:58> MD complaint: suicidal ideation, feels depressed, anxiety, substance abuse and hallucinations <JOSE Mckeon Last Filed: 11/02/21 00:58> Onset (ago): day(s) <JOSE Mckeon Last Filed: 11/02/21 00:58> Duration: constant and getting worse <JOSE Mckeon Last Filed: 11/02/21 00:58> History of same: Yes <JOSE Mckeon Last Filed: 11/02/21 00:58> Relieving factors: none <JOSE Mckeon Last Filed: 11/02/21 00:58> Exacerbating factors: drug use <JOSE Mckeon Last Filed: 11/02/21 00:58> Context: recent drug abuse and not taking psychiatric medications <JOSE Mckeon Last Filed: 11/02/21 00:58> Associated psychiatric symptoms: depression, suicidal ideation, racing thoughts, auditory hallucinations, visual hallucinations and delusions <JOSE Mckeon Last Filed: 11/02/21 00:58> Associated symptoms: denies other symptoms <JOSE Mckeon Last Filed: 11/02/21 00:58> Treatments prior to arrival: none <JOSE Mckeon Last Filed: 11/02/21 00:58> If self harm: admits thoughts of self harm <JOSE Mckeon Last Filed: 11/02/21 00:58> Related Data Home Medications: Previous Rx's Medication Instructions Recorded quetiapine 100 mg tablet 100 mg PO BEDTIME #20 tab 11/02/21 <JOSE Mckeon Last Filed: 11/02/21 00:58> Allergies/Adverse Reactions: Allergies Allergy/AdvReac Type Severity Reaction Status Date / Time No Known Allergies Allergy Verified 05/10/21 12:33 <JOSE Mckeon Last Filed: 11/02/21 00:58> Review of Systems Review of Systems: Constitutional : No Fever, No Chills ENT/Mouth : No Ear Pain, No Nasal Congestion, No sore throat Eyes: No Eye Pain, No Swelling, No Redness Cardiovascular : No Chest Pain, No SOB Respiratory : No Cough, No Sputum, No Dyspnea Gastrointestinal : No ingestions, No Nausea, No Vomiting, No Diarrhea, No Hematochezia, No Melena Genitourinary : No Dysuria, No Urinary Frequency, No Hematuria Musculoskeletal : No Myalgias Skin : No Skin Lesions, No rash Neuro : No Weakness, No Numbness, No Paresthesias, No Dizziness, No Headache Psych : + Anxiety, + Depression, + SI, + thoughts of self injury, No HI, + AVH, Heme/Lymph: No Lymphadenopathy Endocrine : No Polyuria, No Polydipsia <JOSE Mckeon - Last Filed: 11/02/21 00:58> Yes all other systems are reviewed and are negative <JOSE Mckeon - Last Filed: 11/02/21 00:58> [facility] Past Medical History Attestation statement: The following information was validated with the patient. <JOSE Mckeon - Last Filed: 11/02/21 00:58> Medical History: Medical History Polycystic kidney disease <JOSE Mckeon - Last Filed: 11/02/21 00:58> Social History Social History: Social History Household Members: None Housing: Homeless Do you presently have visiting nurse or other home services: No Alcohol intake: current Alcohol intake frequency: does not drink Patient Tobacco Use Status: Current everyday Tobacco user Tobacco use type: Cigarette Cigarette Packs Per Day: 1 Cigarettes Per Day: 20.0 Years Smoked: 11 Second Hand Smoke Exposure: Yes Substance Use Type: Amphetamines and Marijuana Advance Directives: No Advance Directives Information Provided: Yes Healthcare Proxy: No Guardian: No service: No Sexual orientation: Don't Know <JOSE Mckeon - Last Filed: 11/02/21 00:58> Physical Exam Vital Signs: Vital Signs: Last Vital Signs Temp 98.0 F 11/02/21 08:48 Pulse 80 11/02/21 08:48 Resp 16 11/02/21 08:48 BP 131/83 11/02/21 08:48 Pulse Ox 99 11/02/21 08:48 BMI result Body Mass Index 19.5 vital signs have been reviewed as normal and appeared to be correct. Blood pressure normal. Heart rate normal. Respiration rate normal. Temperature normal. Oxygen saturation normal. <JOSE Mckeon - Last Filed: 11/02/21 00:58> Vital Signs: Last Vital Signs Temp 98.0 F 11/02/21 08:48 Pulse 80 11/02/21 08:48 Resp 16 11/02/21 08:48 BP 131/83 11/02/21 08:48 Pulse Ox 99 11/02/21 08:48 BMI result Body Mass Index 19.5 <JOSE Moulton - Last Filed: 11/02/21 11:27> Vital Signs: Last Vital Signs Temp 98.0 F 11/02/21 08:48 Pulse 80 11/02/21 08:48 Resp 16 11/02/21 08:48 BP 131/83 11/02/21 08:48 Pulse Ox 99 11/02/21 08:48 BMI result Body Mass Index 19.5 <Jordana Nguyễn DO - Last Filed: 11/02/21 07:58> Appearance: Alert. Oriented X3. No acute distress. Head: Normal external exam. Normocephalic. Atraumatic. No Cordero signs noted. No raccoon eyes noted Eyes: PERRLA. EOMI. Conjunctiva and sclera normal. Eyelids normal. ENT: EAC normal. TM's Normal. Pharynx normal. Uvula midline. Moist mucous membranes. No trismus noted. No drooling noted. No muffled voice noted. Neck: Normal inspection. Neck supple. FROM. No adenopathy. Thyroid Normal. No meningeal signs. No neck mass noted. CVS: Normal heart rate and rhythm. Heart sound normal. No murmurs noted. Pulses normal throughout. Respiratory: No respiratory distress. Painless inspiration. Breath sounds normal. No wheezes/rales/rhonchi noted. Chest nontender. No accessory muscle usage noted or decreased air movement noted. Abdomen: Soft and nontender. Bowel sounds normal in all 4 quadrants. No distention noted. No organomegaly noted. No visible injury noted. Back: No CVA tenderness. Full range of motion noted. Skin: Skin warm and dry. Normal skin color. Normal skin turgor. No rashes/lesions/lacerations noted. Extremities: No lower extremity edema. Extremities exhibit normal range of motion. Extremities nontender. Neuro: Oriented X 3. No motor deficit. No sensory deficit. Reflexes normal. Psych: Appearance grossly normal, well-kept, mental status normal, speech and movement normal, speech clear, patient appears very sad and anxious along with depressed. Is cooperative. Normal thought process. Normal thought content. Normal good insight. Judgment good. <JOSE Mckeon - Last Filed: 11/02/21 00:58> Course Reevaluation(s) Reevaluation #1: - Sabrina Quigley The social psychologist evaluated the patient and she does not believe that the patient needs to be admitted to psychiatric rehabilitation but the patient wants to be admitted so he can get back on his antidepressants/ anxiety and meds and stop using medications. Therefore due to the mother not answering her phone at this time and we do not have a plan in place he will need a psychiatric consult in the morning for restarting medications and possibly discharging the patient home with outpatient referrals. - Labs reviewed and all within normal limits. UA within normal limits no evidence of UTI. Patient positive for opioids/ Amphetamines/marijuana. Negative for all other drugs. Negative for EtOH. Patient is positive for COVID on 11/01/2021. - therefore at this time patient medically cleared and placed in Physician obs ervation because the patient needs more time to be evaluated by crisis / psychiatric at this time patient remains neuro intact no focal neuro deficit are noted. Lungs clear to auscultation. CV RRR. Abdomen is soft and nontender normal steady gait. Will continue to monitor. <JOSE Mckeon - Last Filed: 11/02/21 00:58> Time: 00:32 <JOSE Mckeon - Last Filed: 11/02/21 00:58> Reevaluation #2: At this time patient will remain in physician observation to allow more time for psychiatry consult. Last night patient was, cooperative, uneventful. Patient is pleasant. Vital signs remained stable, physical examination unchanged, no focal neuro deficits. <JOSE Moulton - Last Filed: 11/02/21 11:27> Time: 07:57 <JOSE Moulton - Last Filed: 11/02/21 11:27> Reevaluation #3: Spoke to [facility] team who tells me initially patient wanted M5 admission to get back on his medicaions. She doesnt believe that he requires in patient admission at this time. Patient would be a good fit for partial program. She also spoke to Isabella Kaplan, who thinks that he should be DC on seroquil. At this time patient is not SI or HI. He is feeling better and feels well enough for DC home. I will DC patinet on seroquil. Isabella recommends 100 mg QHS of seroquel <JOSE Moulton - Last Filed: 11/02/21 11:27> Time: 11:19 <JOSE Moulton - Last Filed: 11/02/21 11:27> MDM - Psych MDM Narrative Medical decision making narrative: 22pm 26-year-old male with a past medical history of anxiety, depression who reports he uses meth daily along with pills, marijuana and codeine he last used prior to arrival presenting to the ED with complaints of increased anxiety / depression with SI thoughts no plan in place with auditory and visual hallucination and d elusions for days worse today. Reports he is also not taking his psychiatric medications. He reports that he was in [facility] and was discharged because him and his mother did not realize that they did not provide any psychiatric rehabilitation therefore his mother brought him here for admission for psychiatric rehabilitation. Although had their the social psychologist looked up the hospital that the patient was at and it appears that the patient was at a COVID positive detox center and he did not admit to this when he arrived here and the mother never told Sabrina that he was in a COVID Rehabilitation Center. He denies any plan in place. He denies homicidal ideations. He reports that he can live with his grandfather after his discharge here. Denies any other symptoms complaints or concerns at this time. Patient is COVID positive. He denied that he knew this. he denies any COVID related complaints. Therefore at this time will obtain labs, EKG then re- evaluate. <JOSE Mckeon - Last Filed: 11/02/21 00:58> Medical Records Attestation: I reviewed the patient's medical records. <JOSE Mckeon - Last Filed: 11/02/21 00:58> Lab Data Attestation: I reviewed the patient's lab results. <JOSE Mckeon - Last Filed: 11/02/21 00:58> Result diagrams: : 11/01/21 22:01 11/01/21 22:00 <JOSE Mckeon - Last Filed: 11/02/21 00:58> Labs: Lab Results 11/01/21 11/01/21 11/01/21 Range/Units 21:37 21:37 21:37 WBC (4.8-10.8) X10*3/uL RBC (4.60-5.80) X10*6/uL Hgb (14.0-18.0) g/dl Hct (42.0-52.0) % MCV (80.0-98.0) fL MCH (27.0-33.0) pg MCHC (31.0-36.0) g/dl RDW (11.0-16.0) % Plt Count (160-400) X10*3/uL MPV (9.4-12.4) fL Immature Gran % (Auto) (0.0-0.4) % Neut % (Auto) (45-73) % Lymph % (Auto) (20-40) % [place] % (Auto) (2-11) % Eos % (Auto) (0-4) % Baso % (Auto) (0-2) % Lymph # (Auto) (1.2-4.9) X10*3/uL [place] # (Auto) (0.1-1.2) X10*3/uL Eos # (Auto) (0.0-0.4) X10*3/uL Baso # (Auto) (0.0-0.2) X10*3/uL Abs Immat Gran (auto) (0.00-0.03) X10*3/uL Absolute Neuts (auto) (2.0-8.3) x10*3/uL Absolute Nucleated RBC (0.0-0.012) X10*3/uL Nucleated RBC % (auto) (0.0-0.2) /100WBC Sodium (135-145) mmol/L Potassium (3.3-5.1) mmol/L Chloride (96-108) mmol/L Carbon Dioxide (22-29) mmol/L Anion Gap (12-20) BUN (9-16) mg/dL Creatinine (0.5-1.4) mg/dL Estim Creat Clear Calc Estimated GFR Random Glucose (60-115) mg/dL Calcium (8.4-10.2) mg/dL Magnesium (1.6-2.6) mg/dL Urine Color YELLOW Urine Appearance HAZY Urine pH 7.0 (5.0-8.0) Ur Specific [place] 1.020 (1.005-1.025) Urine Protein 2+ H (NEG-TRACE) MG/DL Urine Glucose (UA) NEG (NEG) MG/DL Urine Ketones NEG (NEG) MG/DL Urine Blood TRACE (NEG) Urine Nitrite NEG (NEG) Ur Leukocyte Esterase NEG (NEG) Urine RBC 1-4 (0) /HPF Urine WBC 0-2 (0-4) /HPF Ur Squamous Epith Cells TRACE /LPF Amorphous Sediment 2+ /LPF Urine Bacteria NONE /LPF Urine Mucus 1+ /LPF Salicylates (15-30) mg/dL Urine Opiates Screen POSITIVE H (Not Detect) Urine Fentanyl Screen Not Detected (Not Detect) Acetaminophen (<30) mcg/mL Ur Barbiturates Screen Not Detected (Not Detect) Ur Phencyclidine Scrn Not Detected (Not Detect) Ur Amphetamines Screen POSITIVE H (Not Detect) U Benzodiazepines Scrn Not Detected (Not Detect) Urine Cocaine Screen Not Detected (Not Detect) U Marijuana (THC) Screen POSITIVE H (Not Detect) Ethyl Alcohol mg/dL COVID-19 (BATOOL) Positive A (Negative) COVID-19 Clin Com See Note 11/01/21 11/01/21 11/01/21 Range/Units 22:00 22:01 22:01 WBC 9.6 (4.8-10.8) X10*3/uL RBC 4.88 (4.60-5.80) X10*6/uL Hgb 15.2 (14.0-18.0) g/dl Hct 43.1 (42.0-52.0) % MCV 88.3 (80.0-98.0) fL MCH 31.1 (27.0-33.0) pg MCHC 35.3 (31.0-36.0) g/dl RDW 12.1 (11.0-16.0) % Plt Count 237 (160-400) X10*3/uL MPV 9.3 L (9.4-12.4) fL Immature Gran % (Auto) 0.2 (0.0-0.4) % Neut % (Auto) 63.7 (45-73) % Lymph % (Auto) 27.3 (20-40) % [place] % (Auto) 7.8 (2-11) % Eos % (Auto) 0.8 (0-4) % Baso % (Auto) 0.2 (0-2) % Lymph # (Auto) 2.6 (1.2-4.9) X10*3/uL [place] # (Auto) 0.8 (0.1-1.2) X10*3/uL Eos # (Auto) 0.1 (0.0-0.4) X10*3/uL Baso # (Auto) 0.0 (0.0-0.2) X10*3/uL Abs Immat Gran (auto) 0.02 (0.00-0.03) X10*3/uL Absolute Neuts (auto) 6.1 (2.0-8.3) x10*3/uL Absolute Nucleated RBC 0.000 (0.0-0.012) X10*3/uL Nucleated RBC % (auto) 0.0 (0.0-0.2) /100WBC Sodium 142 (135-145) mmol/L Potassium 3.8 (3.3-5.1) mmol/L Chloride 105 (96-108) mmol/L Carbon Dioxide 29 (22-29) mmol/L Anion Gap 12 (12-20) BUN 13 (9-16) mg/dL Creatinine 0.93 (0.5-1.4) mg/dL Estim Creat Clear Calc 107.1 Estimated GFR > 60 Random Glucose 97 (60-115) mg/dL Calcium 10.2 D (8.4-10.2) mg/dL Magnesium 1.9 (1.6-2.6) mg/dL Urine Color Urine Appearance Urine pH (5.0-8.0) Ur Specific [place] (1.005-1.025) Urine Protein (NEG-TRACE) MG/DL Urine Glucose (UA) (NEG) MG/DL Urine Ketones (NEG) MG/DL Urine Blood (NEG) Urine Nitrite (NEG) Ur Leukocyte Esterase (NEG) Urine RBC (0) /HPF Urine WBC (0-4) /HPF Ur Squamous Epith Cells /LPF Amorphous Sediment /LPF Urine Bacteria /LPF Urine Mucus /LPF Salicylates < 5.0 L (15-30) mg/dL Urine Opiates Screen (Not Detect) Urine Fentanyl Screen (Not Detect) Acetaminophen (<30) mcg/mL Ur Barbiturates Screen (Not Detect) Ur Phencyclidine Scrn (Not Detect) Ur Amphetamines Screen (Not Detect) U Benzodiazepines Scrn (Not Detect) Urine Cocaine Screen (Not Detect) U Marijuana (THC) Screen (Not Detect) Ethyl Alcohol < 10 mg/dL COVID-19 (BATOOL) (Negative) COVID-19 Clin Com 11/01/21 Range/Units 22:01 WBC (4.8-10.8) X10*3/uL RBC (4.60-5.80) X10*6/uL Hgb (14.0-18.0) g/dl Hct (42.0-52.0) % MCV (80.0-98.0) fL MCH (27.0-33.0) pg MCHC (31.0-36.0) g/dl RDW (11.0-16.0) % Plt Count (160-400) X10*3/uL MPV (9.4-12.4) fL Immature Gran % (Auto) (0.0-0.4) % Neut % (Auto) (45-73) % Lymph % (Auto) (20-40) % [place] % (Auto) (2-11) % Eos % (Auto) (0-4) % Baso % (Auto) (0-2) % Lymph # (Auto) (1.2-4.9) X10*3/uL [place] # (Auto) (0.1-1.2) X10*3/uL Eos # (Auto) (0.0-0.4) X10*3/uL Baso # (Auto) (0.0-0.2) X10*3/uL Abs Immat Gran (auto) (0.00-0.03) X10*3/uL Absolute Neuts (auto) (2.0-8.3) x10*3/uL Absolute Nucleated RBC (0.0-0.012) X10*3/uL Nucleated RBC % (auto) (0.0-0.2) /100WBC Sodium (135-145) mmol/L Potassium (3.3-5.1) mmol/L Chloride (96-108) mmol/L Carbon Dioxide (22-29) mmol/L Anion Gap (12-20) BUN (9-16) mg/dL Creatinine (0.5-1.4) mg/dL Estim Creat Clear Calc Estimated GFR Random Glucose (60-115) mg/dL Calcium (8.4-10.2) mg/dL Magnesium (1.6-2.6) mg/dL Urine Color Urine Appearance Urine pH (5.0-8.0) Ur Specific [place] (1.005-1.025) Urine Protein (NEG-TRACE) MG/DL Urine Glucose (UA) (NEG) MG/DL Urine Ketones (NEG) MG/DL Urine Blood (NEG) Urine Nitrite (NEG) Ur Leukocyte Esterase (NEG) Urine RBC (0) /HPF Urine WBC (0-4) /HPF Ur Squamous Epith Cells /LPF Amorphous Sediment /LPF Urine Bacteria /LPF Urine Mucus /LPF Salicylates (15-30) mg/dL Urine Opiates Screen (Not Detect) Urine Fentanyl Screen (Not Detect) Acetaminophen < 1 (<30) mcg/mL Ur Barbiturates Screen (Not Detect) Ur Phencyclidine Scrn (Not Detect) Ur Amphetamines Screen (Not Detect) U Benzodiazepines Scrn (Not Detect) Urine Cocaine Screen (Not Detect) U Marijuana (THC) Screen (Not Detect) Ethyl Alcohol mg/dL COVID-19 (BATOOL) (Negative) COVID-19 Clin Com <JOSE Mckeon - Last Filed: 11/02/21 00:58> Lab Results 11/01/21 11/01/21 11/01/21 Range/Units 21:37 21:37 21:37 WBC (4.8-10.8) X10*3/uL RBC (4.60-5.80) X10*6/uL Hgb (14.0-18.0) g/dl Hct (42.0-52.0) % MCV (80.0-98.0) fL MCH (27.0-33.0) pg MCHC (31.0-36.0) g/dl RDW (11.0-16.0) % Plt Count (160-400) X10*3/uL MPV (9.4-12.4) fL Immature Gran % (Auto) (0.0-0.4) % Neut % (Auto) (45-73) % Lymph % (Auto) (20-40) % [place] % (Auto) (2-11) % Eos % (Auto) (0-4) % Baso % (Auto) (0-2) % Lymph # (Auto) (1.2-4.9) X10*3/uL [place] # (Auto) (0.1-1.2) X10*3/uL Eos # (Auto) (0.0-0.4) X10*3/uL Baso # (Auto) (0.0-0.2) X10*3/uL Abs Immat Gran (auto) (0.00-0.03) X10*3/uL Absolute Neuts (auto) (2.0-8.3) x10*3/uL Absolute Nucleated RBC (0.0-0.012) X10*3/uL Nucleated RBC % (auto) (0.0-0.2) /100WBC Sodium (135-145) mmol/L Potassium (3.3-5.1) mmol/L Chloride (96-108) mmol/L Carbon Dioxide (22-29) mmol/L Anion Gap (12-20) BUN (9-16) mg/dL Creatinine (0.5-1.4) mg/dL Estim Creat Clear Calc Estimated GFR Random Glucose (60-115) mg/dL Calcium (8.4-10.2) mg/dL Magnesium (1.6-2.6) mg/dL Urine Color YELLOW Urine Appearance HAZY Urine pH 7.0 (5.0-8.0) Ur Specific [place] 1.020 (1.005-1.025) Urine Protein 2+ H (NEG-TRACE) MG/DL Urine Glucose (UA) NEG (NEG) MG/DL Urine Ketones NEG (NEG) MG/DL Urine Blood TRACE (NEG) Urine Nitrite NEG (NEG) Ur Leukocyte Esterase NEG (NEG) Urine RBC 1-4 (0) /HPF Urine WBC 0-2 (0-4) /HPF Ur Squamous Epith Cells TRACE /LPF Amorphous Sediment 2+ /LPF Urine Bacteria NONE /LPF Urine Mucus 1+ /LPF Salicylates (15-30) mg/dL Urine Opiates Screen POSITIVE H (Not Detect) Urine Fentanyl Screen Not Detected (Not Detect) Acetaminophen (<30) mcg/mL Ur Barbiturates Screen Not Detected (Not Detect) Ur Phencyclidine Scrn Not Detected (Not Detect) Ur Amphetamines Screen POSITIVE H (Not Detect) U Benzodiazepines Scrn Not Detected (Not Detect) Urine Cocaine Screen Not Detected (Not Detect) U Marijuana (THC) Screen POSITIVE H (Not Detect) Ethyl Alcohol mg/dL COVID-19 (BATOOL) Positive A (Negative) COVID-19 Clin Com See Note 11/01/21 11/01/21 11/01/21 Range/Units 22:00 22:01 22:01 WBC 9.6 (4.8-10.8) X10*3/uL RBC 4.88 (4.60-5.80) X10*6/uL Hgb 15.2 (14.0-18.0) g/dl Hct 43.1 (42.0-52.0) % MCV 88.3 (80.0-98.0) fL MCH 31.1 (27.0-33.0) pg MCHC 35.3 (31.0-36.0) g/dl RDW 12.1 (11.0-16.0) % Plt Count 237 (160-400) X10*3/uL MPV 9.3 L (9.4-12.4) fL Immature Gran % (Auto) 0.2 (0.0-0.4) % Neut % (Auto) 63.7 (45-73) % Lymph % (Auto) 27.3 (20-40) % [place] % (Auto) 7.8 (2-11) % Eos % (Auto) 0.8 (0-4) % Baso % (Auto) 0.2 (0-2) % Lymph # (Auto) 2.6 (1.2-4.9) X10*3/uL [place] # (Auto) 0.8 (0.1-1.2) X10*3/uL Eos # (Auto) 0.1 (0.0-0.4) X10*3/uL Baso # (Auto) 0.0 (0.0-0.2) X10*3/uL Abs Immat Gran (auto) 0.02 (0.00-0.03) X10*3/uL Absolute Neuts (auto) 6.1 (2.0-8.3) x10*3/uL Absolute Nucleated RBC 0.000 (0.0-0.012) X10*3/uL Nucleated RBC % (auto) 0.0 (0.0-0.2) /100WBC Sodium 142 (135-145) mmol/L Potassium 3.8 (3.3-5.1) mmol/L Chloride 105 (96-108) mmol/L Carbon Dioxide 29 (22-29) mmol/L Anion Gap 12 (12-20) BUN 13 (9-16) mg/dL Creatinine 0.93 (0.5-1.4) mg/dL Estim Creat Clear Calc 107.1 Estimated GFR > 60 Random Glucose 97 (60-115) mg/dL Calcium 10.2 D (8.4-10.2) mg/dL Magnesium 1.9 (1.6-2.6) mg/dL Urine Color Urine Appearance Urine pH (5.0-8.0) Ur Specific [place] (1.005-1.025) Urine Protein (NEG-TRACE) MG/DL Urine Glucose (UA) (NEG) MG/DL Urine Ketones (NEG) MG/DL Urine Blood (NEG) Urine Nitrite (NEG) Ur Leukocyte Esterase (NEG) Urine RBC (0) /HPF Urine WBC (0-4) /HPF Ur Squamous Epith Cells /LPF Amorphous Sediment /LPF Urine Bacteria /LPF Urine Mucus /LPF Salicylates < 5.0 L (15-30) mg/dL Urine Opiates Screen (Not Detect) Urine Fentanyl Screen (Not Detect) Acetaminophen (<30) mcg/mL Ur Barbiturates Screen (Not Detect) Ur Phencyclidine Scrn (Not Detect) Ur Amphetamines Screen (Not Detect) U Benzodiazepines Scrn (Not Detect) Urine Cocaine Screen (Not Detect) U Marijuana (THC) Screen (Not Detect) Ethyl Alcohol < 10 mg/dL COVID-19 (BATOOL) (Negative) COVID-19 Clin Com 11/01/21 Range/Units 22:01 WBC (4.8-10.8) X10*3/uL RBC (4.60-5.80) X10*6/uL Hgb (14.0-18.0) g/dl Hct (42.0-52.0) % MCV (80.0-98.0) fL MCH (27.0-33.0) pg MCHC (31.0-36.0) g/dl RDW (11.0-16.0) % Plt Count (160-400) X10*3/uL MPV (9.4-12.4) fL Immature Gran % (Auto) (0.0-0.4) % Neut % (Auto) (45-73) % Lymph % (Auto) (20-40) % [place] % (Auto) (2-11) % Eos % (Auto) (0-4) % Baso % (Auto) (0-2) % Lymph # (Auto) (1.2-4.9) X10*3/uL [place] # (Auto) (0.1-1.2) X10*3/uL Eos # (Auto) (0.0-0.4) X10*3/uL Baso # (Auto) (0.0-0.2) X10*3/uL Abs Immat Gran (auto) (0.00-0.03) X10*3/uL Absolute Neuts (auto) (2.0-8.3) x10*3/uL Absolute Nucleated RBC (0.0-0.012) X10*3/uL Nucleated RBC % (auto) (0.0-0.2) /100WBC Sodium (135-145) mmol/L Potassium (3.3-5.1) mmol/L Chloride (96-108) mmol/L Carbon Dioxide (22-29) mmol/L Anion Gap (12-20) BUN (9-16) mg/dL Creatinine (0.5-1.4) mg/dL Estim Creat Clear Calc Estimated GFR Random Glucose (60-115) mg/dL Calcium (8.4-10.2) mg/dL Magnesium (1.6-2.6) mg/dL Urine Color Urine Appearance Urine pH (5.0-8.0) Ur Specific [place] (1.005-1.025) Urine Protein (NEG-TRACE) MG/DL Urine Glucose (UA) (NEG) MG/DL Urine Ketones (NEG) MG/DL Urine Blood (NEG) Urine Nitrite (NEG) Ur Leukocyte Esterase (NEG) Urine RBC (0) /HPF Urine WBC (0-4) /HPF Ur Squamous Epith Cells /LPF Amorphous Sediment /LPF Urine Bacteria /LPF Urine Mucus /LPF Salicylates (15-30) mg/dL Urine Opiates Screen (Not Detect) Urine Fentanyl Screen (Not Detect) Acetaminophen < 1 (<30) mcg/mL Ur Barbiturates Screen (Not Detect) Ur Phencyclidine Scrn (Not Detect) Ur Amphetamines Screen (Not Detect) U Benzodiazepines Scrn (Not Detect) Urine Cocaine Screen (Not Detect) U Marijuana (THC) Screen (Not Detect) Ethyl Alcohol mg/dL COVID-19 (BATOOL) (Negative) COVID-19 Clin Com <JOSE Moulton - Last Filed: 11/02/21 11:27> Lab Results 11/01/21 11/01/21 11/01/21 Range/Units 21:37 21:37 21:37 WBC (4.8-10.8) X10*3/uL RBC (4.60-5.80) X10*6/uL Hgb (14.0-18.0) g/dl Hct (42.0-52.0) % MCV (80.0-98.0) fL MCH (27.0-33.0) pg MCHC (31.0-36.0) g/dl RDW (11.0-16.0) % Plt Count (160-400) X10*3/uL MPV (9.4-12.4) fL Immature Gran % (Auto) (0.0-0.4) % Neut % (Auto) (45-73) % Lymph % (Auto) (20-40) % [place] % (Auto) (2-11) % Eos % (Auto) (0-4) % Baso % (Auto) (0-2) % Lymph # (Auto) (1.2-4.9) X10*3/uL [place] # (Auto) (0.1-1.2) X10*3/uL Eos # (Auto) (0.0-0.4) X10*3/uL Baso # (Auto) (0.0-0.2) X10*3/uL Abs Immat Gran (auto) (0.00-0.03) X10*3/uL Absolute Neuts (auto) (2.0-8.3) x10*3/uL Absolute Nucleated RBC (0.0-0.012) X10*3/uL Nucleated RBC % (auto) (0.0-0.2) /100WBC Sodium (135-145) mmol/L Potassium (3.3-5.1) mmol/L Chloride (96-108) mmol/L Carbon Dioxide (22-29) mmol/L Anion Gap (12-20) BUN (9-16) mg/dL Creatinine (0.5-1.4) mg/dL Estim Creat Clear Calc Estimated GFR Random Glucose (60-115) mg/dL Calcium (8.4-10.2) mg/dL Magnesium (1.6-2.6) mg/dL Urine Color YELLOW Urine Appearance HAZY Urine pH 7.0 (5.0-8.0) Ur Specific [place] 1.020 (1.005-1.025) Urine Protein 2+ H (NEG-TRACE) MG/DL Urine Glucose (UA) NEG (NEG) MG/DL Urine Ketones NEG (NEG) MG/DL Urine Blood TRACE (NEG) Urine Nitrite NEG (NEG) Ur Leukocyte Esterase NEG (NEG) Urine RBC 1-4 (0) /HPF Urine WBC 0-2 (0-4) /HPF Ur Squamous Epith Cells TRACE /LPF Amorphous Sediment 2+ /LPF Urine Bacteria NONE /LPF Urine Mucus 1+ /LPF Salicylates (15-30) mg/dL Urine Opiates Screen POSITIVE H (Not Detect) Urine Fentanyl Screen Not Detected (Not Detect) Acetaminophen (<30) mcg/mL Ur Barbiturates Screen Not Detected (Not Detect) Ur Phencyclidine Scrn Not Detected (Not Detect) Ur Amphetamines Screen POSITIVE H (Not Detect) U Benzodiazepines Scrn Not Detected (Not Detect) Urine Cocaine Screen Not Detected (Not Detect) U Marijuana (THC) Screen POSITIVE H (Not Detect) Ethyl Alcohol mg/dL COVID-19 (BATOOL) Positive A (Negative) COVID-19 Clin Com See Note 11/01/21 11/01/21 11/01/21 Range/Units 22:00 22:01 22:01 WBC 9.6 (4.8-10.8) X10*3/uL RBC 4.88 (4.60-5.80) X10*6/uL Hgb 15.2 (14.0-18.0) g/dl Hct 43.1 (42.0-52.0) % MCV 88.3 (80.0-98.0) fL MCH 31.1 (27.0-33.0) pg MCHC 35.3 (31.0-36.0) g/dl RDW 12.1 (11.0-16.0) % Plt Count 237 (160-400) X10*3/uL MPV 9.3 L (9.4-12.4) fL Immature Gran % (Auto) 0.2 (0.0-0.4) % Neut % (Auto) 63.7 (45-73) % Lymph % (Auto) 27.3 (20-40) % [place] % (Auto) 7.8 (2-11) % Eos % (Auto) 0.8 (0-4) % Baso % (Auto) 0.2 (0-2) % Lymph # (Auto) 2.6 (1.2-4.9) X10*3/uL [place] # (Auto) 0.8 (0.1-1.2) X10*3/uL Eos # (Auto) 0.1 (0.0-0.4) X10*3/uL Baso # (Auto) 0.0 (0.0-0.2) X10*3/uL Abs Immat Gran (auto) 0.02 (0.00-0.03) X10*3/uL Absolute Neuts (auto) 6.1 (2.0-8.3) x10*3/uL Absolute Nucleated RBC 0.000 (0.0-0.012) X10*3/uL Nucleated RBC % (auto) 0.0 (0.0-0.2) /100WBC Sodium 142 (135-145) mmol/L Potassium 3.8 (3.3-5.1) mmol/L Chloride 105 (96-108) mmol/L Carbon Dioxide 29 (22-29) mmol/L Anion Gap 12 (12-20) BUN 13 (9-16) mg/dL Creatinine 0.93 (0.5-1.4) mg/dL Estim Creat Clear Calc 107.1 Estimated GFR > 60 Random Glucose 97 (60-115) mg/dL Calcium 10.2 D (8.4-10.2) mg/dL Magnesium 1.9 (1.6-2.6) mg/dL Urine Color Urine Appearance Urine pH (5.0-8.0) Ur Specific [place] (1.005-1.025) Urine Protein (NEG-TRACE) MG/DL Urine Glucose (UA) (NEG) MG/DL Urine Ketones (NEG) MG/DL Urine Blood (NEG) Urine Nitrite (NEG) Ur Leukocyte Esterase (NEG) Urine RBC (0) /HPF Urine WBC (0-4) /HPF Ur Squamous Epith Cells /LPF Amorphous Sediment /LPF Urine Bacteria /LPF Urine Mucus /LPF Salicylates < 5.0 L (15-30) mg/dL Urine Opiates Screen (Not Detect) Urine Fentanyl Screen (Not Detect) Acetaminophen (<30) mcg/mL Ur Barbiturates Screen (Not Detect) Ur Phencyclidine Scrn (Not Detect) Ur Amphetamines Screen (Not Detect) U Benzodiazepines Scrn (Not Detect) Urine Cocaine Screen (Not Detect) U Marijuana (THC) Screen (Not Detect) Ethyl Alcohol < 10 mg/dL COVID-19 (BATOOL) (Negative) COVID-19 Clin Com 11/01/21 Range/Units 22:01 WBC (4.8-10.8) X10*3/uL RBC (4.60-5.80) X10*6/uL Hgb (14.0-18.0) g/dl Hct (42.0-52.0) % MCV (80.0-98.0) fL MCH (27.0-33.0) pg MCHC (31.0-36.0) g/dl RDW (11.0-16.0) % Plt Count (160-400) X10*3/uL MPV (9.4-12.4) fL Immature Gran % (Auto) (0.0-0.4) % Neut % (Auto) (45-73) % Lymph % (Auto) (20-40) % [place] % (Auto) (2-11) % Eos % (Auto) (0-4) % Baso % (Auto) (0-2) % Lymph # (Auto) (1.2-4.9) X10*3/uL [place] # (Auto) (0.1-1.2) X10*3/uL Eos # (Auto) (0.0-0.4) X10*3/uL Baso # (Auto) (0.0-0.2) X10*3/uL Abs Immat Gran (auto) (0.00-0.03) X10*3/uL Absolute Neuts (auto) (2.0-8.3) x10*3/uL Absolute Nucleated RBC (0.0-0.012) X10*3/uL Nucleated RBC % (auto) (0.0-0.2) /100WBC Sodium (135-145) mmol/L Potassium (3.3-5.1) mmol/L Chloride (96-108) mmol/L Carbon Dioxide (22-29) mmol/L Anion Gap (12-20) BUN (9-16) mg/dL Creatinine (0.5-1.4) mg/dL Estim Creat Clear Calc Estimated GFR Random Glucose (60-115) mg/dL Calcium (8.4-10.2) mg/dL Magnesium (1.6-2.6) mg/dL Urine Color Urine Appearance Urine pH (5.0-8.0) Ur Specific [place] (1.005-1.025) Urine Protein (NEG-TRACE) MG/DL Urine Glucose (UA) (NEG) MG/DL Urine Ketones (NEG) MG/DL Urine Blood (NEG) Urine Nitrite (NEG) Ur Leukocyte Esterase (NEG) Urine RBC (0) /HPF Urine WBC (0-4) /HPF Ur Squamous Epith Cells /LPF Amorphous Sediment /LPF Urine Bacteria /LPF Urine Mucus /LPF Salicylates (15-30) mg/dL Urine Opiates Screen (Not Detect) Urine Fentanyl Screen (Not Detect) Acetaminophen < 1 (<30) mcg/mL Ur Barbiturates Screen (Not Detect) Ur Phencyclidine Scrn (Not Detect) Ur Amphetamines Screen (Not Detect) U Benzodiazepines Scrn (Not Detect) Urine Cocaine Screen (Not Detect) U Marijuana (THC) Screen (Not Detect) Ethyl Alcohol mg/dL COVID-19 (BATOOL) (Negative) COVID-19 Clin Com <Jordana Nguyễn DO - Last Filed: 11/02/21 07:58> ECG Data Attestation: I personally reviewed and interpreted this ECG as follows: <JOSE Mckeon - Last Filed: 11/02/21 00:58> ECG interpretation date: 11/02/21 <JOSE Mckeon - Last Filed: 11/02/21 00:58> ECG interpretation time: 12:49 <JOSE Mckeon - Last Filed: 11/02/21 00:58> Interpretation: Normal sinus rhythm with ventricular rate of 71 with a normal ME interval normal QRS duration normal QT/ QTC interval. No acute ischemic change are noted. Similar when compared to prior EKG on 05/10/2021 <JOSE Mckeon Last Filed: 11/02/21 00:58> Discharge Plan Discharge Clinical Impression: COVID-19, Depression, Anxiety <JOSE Mckeon Last Filed: 11/02/21 00:58> Patient Disposition: Home, Self-Care <JOSE Mckeon Last Filed: 11/02/21 00:58> Instructions: Depression (ED), Generalized Anxiety Disorder (ED), Anxiety (ED) <JOSE Mckeon Last Filed: 11/02/21 00:58> Additional Instructions: Take your medications as prescribed. If you were prescribed antibiotics today, it is important that you take your medication to their entirety, do not skip any doses, do not finish them early. The CARE team has set you up to be in contact with out partial program. We will start you on Seroquel. Follow-up with your primary care provider this week. Return to the emergency department with new or worsening symptoms. In case of emergency call 911 <JOSE Mckeon - Last Filed: 11/02/21 00:58> Prescriptions: New quetiapine 100 mg tablet 100 mg PO BEDTIME Qty: 20 RF: 0 <JOSE Mckeon Last Filed: 11/02/21 00:58> Referrals: Sanjeev Parnell [Emergency Nurse] - 2 days <JOSE Mckeon Last Filed: 11/02/21 00:58>
--- NOTE | 2021-11-02 05:48 | PC.NURSE ---
Patient slept through the night, no distress observed/reported, patient is COVID + and it is evident patient and his mother knew of covid status, patient briefly screened by care team and recommended that patient does not require inpatient level of care however patient is adamant to go inpatient, psych consult in placed and psychiatrist will evaluate the patient and see what level of care patient needs, med rec not done because is off his medication since June of 2021, will continue to monitor.
[2021-11-02] MEDS: Nicotine Polacrilex 2 MG GUM BUCCAL ×2 (07:30→12:45)
--- NOTE | 2021-11-02 07:55 | MHC.CARE ---
LATE ENTRY: Pt evaluated by CARE team on 11/01/21 at 11PM. Evaluation unable to be completed at that time due to electronic medical record maintenance. Disposition is for discharge with PHP and outpatients referrals. Psych consult has been requested to discuss restarting medications and other treatment recommendations.
--- NOTE | 2021-11-02 08:08 | PC.NURSE ---
Pt reports that prior to yesterday he had not tested positive for covid. PT reports that he had diarrhea last week but denies cough or fever.
[2021-11-02 08:48] VITALS: BP 131/83; PULSE 80; RESP 16; TEMP 36.7; O2SAT 99
--- NOTE | 2021-11-02 11:07 | MHC.RECOVSUP ---
? Reason for consult:Recovery Support o Current location:[facility] o Identified substance use concern:Polysubstance - Support ? Intervention o Community resources provided o Harm reduction discussion ? Plan: o Referral to [facility] o Patient awaiting crisis evaluation o Patient to follow up with [facility] after discharge ? Additional information: Patient Covid positive, gave patient community resources
--- NOTE | 2021-11-02 13:15 | MHC.CARE ---
Psychiatrist Dr. Mishra consulted, he is in agreement with original disposition to discharge patient with appropriate referrals to outpatient services; does not meet the admission criteria for inpatient psychiatric treatment, CARE Team met with patient in [facility] to discuss discharge plan. -Prescription for Seroquel (20 days) written by ED provider -Referral to [facility], they will call patient directly -Referral to [facility] for therapy and psychiatry in place, they will call patient directly -Encouraged patient to request PCP prescribe medication while awaiting for psychiatry appointment at [facility] Patient was provided with information about [facility], Bonnie Crowder and the CARE Team. Facial Operator, LINDA Tobias and ED provider, JOSE Moulton consulted and in agreement with disposition
--- NOTE | 2021-11-02 13:57 | MHC.CARE ---
CARE Team speaks with pt's mother, who initially brought pt the ED last night. Mother expresses concerns regarding hallucination, delusions and sleep deprivation. Mother agrees that these sx are correlated with methamphetamine use, as he never exhibited these sx in the past and is not exhibiting these sx in the ED. CARE Team explains the outpatient referrals made for pt and the recommendations for follow up. CARE Team provides education to mother regarding process for sect 35. Mother and family will consider sect 35.
== END 2021-11-02 14:43 | disposition home or self-care (01) ==
PROVIDERS: Physician Assistant Medical; Emergency Provider Emergency Medicine Emergency Medical Services; PCP Internal Medicine
DX: U07.1 COVID-19 (principal); F41.9 Anxiety disorder, unspecified; F32.A Depression, unspecified; F19.951 Other psychoactive substance use, unspecified with psychoactive substance-induced psychotic disorder with hallucinations; R45.851 Suicidal ideations; Z91.14 Patient's other noncompliance with medication regimen; F17.200 Nicotine dependence, unspecified, uncomplicated
CPT/HCPCS: 36415; 80048; 80143; 80179; 80307; 81001; 82077; 83735; 85025; 87635; 93005; 99285